=== PATIENT | male | born 1965 | race Caucasian/White ===

== ENCOUNTER 2016-08-18 08:45 | Day surgery (SDC) | payer BC ==
[2016-08-17 09:45] VITALS: BMI 24.1
[~2016-08-18 08:45] MED LIST: LACTATED RINGERS 1,000 ML IV SCH
[2016-08-18] MEDS ORDERED: LACTATED RINGERS 1,000 ML IV ONE (09:15)
[2016-08-18 09:16] VITALS: RESP 18; TEMP 97.7
[2016-08-18] MEDS ORDERED: LIDOCAINE 1% 20 ML VIAL (10MG/ML) FOR IV START INTRADERMA ONE (09:16)
[2016-08-18] MEDS ORDERED: BUPIVACAINE (PF) 0.5% 30 ML VIAL ONE (10:34)
[2016-08-18] MEDS ORDERED: TRIAMCINOLONE ACETONIDE 40 MG/ML 1 ML VIAL ONE (10:34)
[2016-08-18] MEDS ORDERED: MIDAZOLAM 2 MG/2 ML VIAL ONE (10:34)
[2016-08-18] MEDS ORDERED: fentaNYL (PF) 50 MCG/ML 2 ML AMP ONE (10:34)
--- NOTE | 2016-08-18 11:11 | P.PCN ---
Date of Procedure: 08/18/16 Procedure(s) Performed: PREOPERATIVE DIAGNOSIS: 1-Lumbar Spondylosis with Facet Arthropathy without myelopathy. POSTOPERATIVE DIAGNOSIS: 1- Lumbar Spondylosis with Facet Arthropathy without myelopathy. PROCEDURES : Left Radiofrequency thermocoagulation, L3-L4, L4-L5, and L5-S1 medial branch, with fluoroscopic guidance ANESTHESIA: IV sedation with versed 2 mg and fentaneyl 100 mcg and local infiltration with lidocaine 1% 6 ml EBL: Minimal PROCEDURE INDICATION: The patient with low back pain secondary to lumbar facet arthropathy who had more than 50% relief of her pain with previous diagnostic lumbar medial branch block with bupivacaine. we have done the radiofrequency ablation of the medial branch 6 months ago , the patient had good pain relief for 6 months, and he is here today to have a repeat radiofrequency of the medial branch lumbar area . PROCEDURE DESCRIPTION / TECHNIQUE: The patient was seen and identified in the preoperative area. Risks, benefits, complications, including but not limited to risk of infection ,bleeding , allergic reactions to the medications and no complete pain releife , and alternatives were discussed with the patient, the patient agreed to proceed with the procedure and signed the consent. IV was started. Vital signs remained stable throughout the procedure. Patient was taken to the OR and time out was completed. The patient was placed in the prone position on the procedure table. The lumber area was prepped and draped in the usual sterile fashion. . Vital signs were closely monitored during the procedure .IV sedation was used during the procedure to decrease patients anxiety. Using AP and then oblique fluoroscopy, the eye of the Otilio dog corresponding to the connection between the superior and transverse articular processes of left L3, L4, and L5 were identified, marked, and localized with 1 % lidocaine. Subsequently, a 18 [id number] radiofrequency cannula with a 10- mm active tip was advanced guided by fluoroscopy to each of the eyes of the Otilio dog at left L3, L4, and L5. Each site then underwent sensory testing at 50 Hz and 0 to 1 volt and motor testing at 2.5 Hz and 0 to 3 volt with local stimulation, but no radicular symptoms down the legs. Thereafter the left L3-4, L4-5, and L5-S1 sites underwent radiofrequency thermocoagulation at 80 degrees celsius for 90 seconds after injecting 0.5 ml of PF lidocaine 1%. then After the thermocoagulation done , 1 ml of the block solution containing Kenalog 40 mg and 3 ml of marain 0.5% was injected at the left L3-4 , L4-5 , and L5-S1, levels after negative aspiration of CSF and blood and with no paresthesias. Cannulas were retracted while injecting lidocaine 1% until the needle is out. At the end of the procedure, the skin was cleansed and bandages were applied. COMPLICATIONS: No acute complications. DISPOSITION / PLANS: The patient was placed in a supine position and transferred to the recovery area in a stable condition for observation and was discharged from the recovery room after meeting discharge criteria. Home discharge instructions given to the patient by the staff. The patient was reexamined prior to discharge. The patient will schedule a follow up in the clinic in 2-4 weeks.
[2016-08-18] MEDS ORDERED: IV FLUID CONTINUATION 1,000 ML IV ONE (11:16)
[2016-08-18 11:34] VITALS: BP 142/86; PULSE 59
--- NOTE | 2016-08-18 13:07 | FL ---
EXAMINATION TYPE: FL guided pain mgmt statistic DATE OF EXAM: 08/18/2016 11:08 AM FLUOROSCOPY Fluoroscopy time of 28 seconds was used during left radiofrequency ablation in the lumbar spine. 3 i mage/s document/s the procedure.
--- NOTE | 2016-09-23 15:10 | P.PN ---
Progress Note - Text This is an addendum to the note dictated earlier, patient was scheduled to have radiofrequency ablation of the medial branch lumbar area on right side, but when he came in for the procedure, he was complaining of more pain on the left side for this reason we chose to do the left side radiofrequency ablation of the medial branch, the patient will have the radiofrequency of the medial branch on the right side in the near future
== END 2016-08-18 11:46 | disposition home or self-care (01) ==
LOC: ORPAIN 08:45
PROVIDERS: ATTEND Specialist
DX: M47.816 Spondylosis without myelopathy or radiculopathy, lumbar region (principal); M46.96 Unspecified inflammatory spondylopathy, lumbar region; M51.36 Other intervertebral disc degeneration, lumbar region; Z88.0 Allergy status to penicillin
CPT/HCPCS: 64635; 64636; J2250; J3301; J3010

== ENCOUNTER 2016-10-05 08:28 | Day surgery (SDC) | payer BC ==
[2016-10-05 09:38] VITALS: TEMP 98.4
[2016-10-05] MEDS ORDERED: LIDOCAINE 1% 20 ML VIAL (10MG/ML) FOR IV START INTRADERMA ONE (09:42)
[2016-10-05] MEDS ORDERED: fentaNYL (PF) 50 MCG/ML 2 ML AMP ONE (10:27)
[2016-10-05] MEDS ORDERED: TRIAMCINOLONE ACETONIDE 40 MG/ML 1 ML VIAL ONE (10:27)
[2016-10-05] MEDS ORDERED: MIDAZOLAM 2 MG/2 ML VIAL ONE (10:27)
[2016-10-05] MEDS ORDERED: BUPIVACAINE (PF) 0.5% 30 ML VIAL ONE (10:27)
--- NOTE | 2016-10-05 11:04 | P.PCN ---
Date of Procedure: 10/05/16 Procedure(s) Performed: PREOPERATIVE DIAGNOSIS: 1-Lumbar Spondylosis with Facet Arthropathy without myelopathy. POSTOPERATIVE DIAGNOSIS: 1- Lumbar Spondylosis with Facet Arthropathy without myelopathy. PROCEDURES : Right Radiofrequency thermocoagulation, L3-L4, L4-L5, and L5-S1 medial branch, with fluoroscopic guidance ANESTHESIA: IV sedation with versed 2 mg and fentaneyl 100 mcg and local infiltration with lidocaine 1% 6 ml EBL: Minimal PROCEDURE INDICATION: The patient with low back pain secondary to lumbar facet arthropathy who had more than 50% relief of her pain with previous diagnostic lumbar medial branch block with bupivacaine. PROCEDURE DESCRIPTION / TECHNIQUE: The patient was seen and identified in the preoperative area. Risks, benefits, complications, including but not limited to risk of infection ,bleeding , allergic reactions to the medications and no complete pain releife , and alternatives were discussed with the patient, the patient agreed to proceed with the procedure and signed the consent. IV was started. Vital signs remained stable throughout the procedure. Patient was taken to the OR and time out was completed. The patient was placed in the prone position on the procedure table. The lumber area was prepped and draped in the usual sterile fashion. . Vital signs were closely monitored during the procedure .IV sedation was used during the procedure to decrease patients anxiety. Using AP and then oblique fluoroscopy, the ``eye of the Otilio dog corresponding to the connection between the superior and transverse articular processes of right L3, L4, and L5 were identified, marked, and localized with 1 % lidocaine. Subsequently, a 18 [id number] radiofrequency cannula with a 10- mm active tip was advanced guided by fluoroscopy to each of the ``eyes of the Otilio dog at right L3, L4, and L5. Each site then underwent sensory testing at 50 Hz and 0 to 1 volt and motor testing at 2.5 Hz and 0 to 3 volt with local stimulation, but no radicular symptoms down the legs. Thereafter the right L3-4, L4-5, and L5-S1 sites underwent radiofrequency thermocoagulation at 80 degrees celsius for 90 seconds after injecting 0.5 ml of PF lidocaine 1%. then After the thermocoagulation done , 1 ml of the block solution containing Kenalog 40 mg and 3 ml of marain 0.5% was injected at the right L3-4 , L4-5 , and L5-S1, levels after negative aspiration of CSF and blood and with no paresthesias. Cannulas were retracted while injecting lidocaine 1% until the needle is out. At the end of the procedure, the skin was cleansed and bandages were applied. COMPLICATIONS: No acute complications. DISPOSITION / PLANS: The patient was placed in a supine position and transferred to the recovery area in a stable condition for observation and was discharged from the recovery room after meeting discharge criteria. Home discharge instructions given to the patient by the staff. The patient was reexamined prior to discharge. The patient will schedule a follow up in the clinic in 2-4 week Patient given a prescription refill for Neurontin 600 mg every 6 hours dispensed 120 with one refill, Motrin 800 mg every 8 hours dispense 90 with 1 refill, and Ultram 50 mg 1 tablet by mouth every 8 hours dispense 90 with 1 refill
[2016-10-05] MEDS ORDERED: IV FLUID CONTINUATION 1,000 ML IV ONE (11:10)
[2016-10-05 11:12] VITALS: RESP 18
--- NOTE | 2016-10-05 11:16 | FL ---
EXAMINATION TYPE: FL guided pain mgmt statistic DATE OF EXAM: 10/05/2016 11:00 AM HISTORY: Pain 6 sec fluoro time. 3 images scanned. Rt. Lumbar epidural.
[2016-10-05 11:27] VITALS: BP 127/73; PULSE 58
== END 2016-10-05 12:06 | disposition home or self-care (01) ==
LOC: ORPAIN 08:28
PROVIDERS: ATTEND Specialist
DX: M47.816 Spondylosis without myelopathy or radiculopathy, lumbar region (principal); M46.96 Unspecified inflammatory spondylopathy, lumbar region; F17.200 Nicotine dependence, unspecified, uncomplicated; J44.9 Chronic obstructive pulmonary disease, unspecified; Z88.0 Allergy status to penicillin
CPT/HCPCS: 99152; 64635; 64636 ×2; J2250; J3301; J3010

== ENCOUNTER → 2016-11-30 | Outpatient (CLI) | payer BC ==
[2016-11-30 13:38] VITALS: BP 159/92; PULSE 73; RESP 16; TEMP 98.2
--- NOTE | 2016-11-30 14:32 | P.CONS ---
History of Present Illness - Reason for Consult Consult date: 11/30/16 - History of Present Illness This is a follow-up visit for this 51 years old male with a chronic history of severe low back pain patient diagnosed with lumbar spondylosis, lumbar degenerative disc disease, status post radiofrequency ablation of the medial branch lumbar area , done in September 2016, and July 2016, patient was doing fairly well until last week when he twisted his torso , and he started feeling severe low back pain with radiation to the left lower extremity associated with numbness and tingling sensation, radiated to the foot, he denies any motor or sensory deficit, no fever or night sweats and no change in the bowel movement or urination, is currently on Neurontin 600 mg every 6 hours , Ultram 50 mg every 8 hours, Motrin 800 mg every 8 hours, denies any side effect of the medication he denies any excessive drowsiness sleepiness, and he denies any suicidal ideation Past Medical History Past Medical History: Musculoskeletal Disorder Additional Past Medical History / Comment(s): LUMBAR DDD-NUMBNESS & TINGLING IN LT LEG TO FEET OCCASIONALLY- USES TENS UNIT PRN History of Any Multi-Drug Resistant Organisms: None Reported Past Surgical History: No Surgical Hx Reported Additional Past Surgical History / Comment(s): PAIN CLINIC PROCEDURES- LAST ONE 04/09/15 Past Anesthesia/Blood Transfusion Reactions: No Reported Reaction Past Psychological History: No Psychological Hx Reported Smoking Status: Current every day smoker Past Alcohol Use History: None Reported Additional Past Alcohol Use History / Comment(s): STARTED SMOKING AGE 17(1980) 1 /2 PPD Past Drug Use History: None Reported - Past Family History Mother Family Medical History: Myocardial Infarction ([place]) Additional Family Medical History / Comment(s): triple bipass Father Family Medical History: No Reported History Additional Family Medical History / Comment(s): triple bypass Medications and Allergies Home Medications Medication Instructions Recorded Confirmed Type Multivitamin [Men's Multi-Vitamin] 1 tab PO DAILY 01/08/16 11/30/16 History Allergies Allergy/AdvReac Type Severity Reaction Status Date / Time Penicillins Allergy SEIZURE Verified 11/30/16 13:23 Physical Exam Vitals: Vital Signs Temp Pulse Resp BP 11/30/16 13:25 98.2 F 73 16 159/92 Intake and Output 11/29/16 11/30/16 11/30/16 22:59 06:59 14:59 Other: Weight 86.183 kg Patient Weight 12/01/16 06:59 Weight 86.183 kg Physical Examinations : 1-Constitutiona : Cooperative , not in acute distress . 2-HEENT : nech ; supple , no Lymphadenopathy , no Thyromegaly , normal thyroid size . eyes : no ptosis , no icterus, no photophobia . ENT : normal of hearing , normal oropharynx , no Thrush . 3- Respiratory : Chest clear to auscultations Bilaterally , no wheezing , no Rhonchi . 4- Cardiovascular : regular rate and rhythem , S1 , S2 , no S3 , no S4. 5- Gastrointestinal : abdomen soft no tenderness , bowel sounds positive all four quadrents , no organomegally . 6- Genitourinary : Defferred . 7- neurologic : Cranial nerve II to XII intact , no focal neurological deffecit . 8-psychatric : alert , oriented X 3 , appropriate affect , intact judgment and insight . 9-Lymphatic : no Lymphadenopathy . 10- musculoskeltal : t . exams of the Lumber spine = normal moter stegnth lower extremities ,thigh and legs .5/5 deep tendon reflexes : normal Knee Jerk , normal ankle Jerk . positive lumber facet Loading Test strait leg raising test positive at 30 degree ,LT, negative right side , Fabere test positive LT . Negative on the right side Decreased sensation in the anterior and medial aspect of the left thigh Results Comments: MRI of the lumbar spine done at [facility] which was done in 2013= lumbar degenerative disc disease and lumbar spondylosis and left side L5-S1 paracentral disc herniation Assessment and Plan Plan: Assessment and plan = - Chronic low back pain secondary to lumbar degenerative disc disease , lumbar spondylosis with facet arthropathy without myelopathy ,L5- S1 disc herniation -Currently patient has symptoms of lumbar radiculopathy secondary to lumbar disc herniation - diagnoses, prognosis, and treatment options including but not limited to physical therapy, surgical interventions, interventional therapies and medication management including narcotics and adjuvant medication were discussed with the patient and all questions answered to the patient's satisfaction. -medication refile =1-Ultram 50 mg every 8 hours dispense 90 with 2 refill 2- Neurontin 600 mg every X hours dispense 120 with 2 refills 3-Motrin 800 mg every 8 hours dispense 90 with 2 refills -procedure= patient could be a good candidate to have lumbar epidural steroid injections left side directed at the L5-S1 levels , she continued to have severe pain after the epidural steroid injections and would consider doing medial MRI of the lumbar spine to evaluate the progression of his lumbar spine Time with Patient: Less than 30
== END | disposition home or self-care (01) ==
LOC: PNWHC3 13:13
PROVIDERS: ATTEND Specialist
DX: M51.27 Other intervertebral disc displacement, lumbosacral region (principal); M51.36 Other intervertebral disc degeneration, lumbar region; M47.816 Spondylosis without myelopathy or radiculopathy, lumbar region; M46.86 Other specified inflammatory spondylopathies, lumbar region; F17.200 Nicotine dependence, unspecified, uncomplicated; Z88.0 Allergy status to penicillin
CPT/HCPCS: 99211

== ENCOUNTER 2016-12-16 06:22 | Day surgery (SDC) | payer BC ==
[2016-12-15 09:49] VITALS: BMI 25.0
[2016-12-16 06:52] VITALS: RESP 18; TEMP 96.6
[2016-12-16] MEDS ORDERED: DEXAMETHASONE SOD PHOS (MDV) 100 MG/10 ML VIAL ONE ×2 (07:05)
[2016-12-16] MEDS ORDERED: IOHEXOL 180 MG/ML 1 ML ML ONE (07:05)
--- NOTE | 2016-12-16 07:18 | P.PCN ---
Date of Procedure: 12/16/16 Preoperative Diagnosis: Postoperative Diagnosis: Procedure(s) Performed: PREOPERATIVE DIAGNOSIS: 1- Lumbar Degenerative Disc Diseases 2-Lumbar spondylosis with Facet arthropathy without myelopathy. 3-lumbar radiculopathy. POSTOPERATIVE DIAGNOSIS: 1-Lumber Degenerative Disc Diseases 2-Lumbar spondylosis with Facet arthropathy without myelopathy. 3-lumbar radiculopathy. PROCEDURE 1. Lumbar epidural steroid injection under fluoroscopic guidance at the L5-S1 level. 2. Lumbar epidurogram. ANESTHESIA: Local with 1% lidocaine 3 ml EBL: Minimal PROCEDURE INDICATION: The patient with low back pain and radiculitis symptoms unresponsive to conservative treatment. Fluoroscopy was used to optimize visualization of the needle placement and to maximize safety. PROCEDURE DESCRIPTION / TECHNIQUE: The patient was seen and identified in the preoperative area. Risks, benefits , complications including but not limited to infections ,bleeding ,allergic reaction to the medications ,nerve damage and not complete pain releife , and alternatives were discussed with the patient. The patient agreed to proceed with the procedure and signed the consent, and vital signs were stable. Patient was taken to the OR and time out was completed. The patient was placed in the prone position on procedure table and a pillow was placed under the abdomen to reduce lumbar lordosis. The lumbosacral area was prepped and draped in the usual sterile fashion.ere closely monitored during the procedure.. Vital signs was monitered during the entire procedure. Using anterior-posterior fluoroscopy, the L5-S1 interlaminar space was identified and the skin over this site was marked and then infiltrated with 1% lidocaine subcutaneously. Subsequently, a 20-gauge Tuohy epidural needle was inserted and advanced toward the epidural space using the ``Loss of resistance technique and guided by AP and lateral fluoroscopy. The correct needle position in the epidural space was verified with the injection of 2 mL of the water soluble contrast dye Omnipaque 180 contrast and observing an excellent epidurogram with the epidural spread of the dye, after negative aspiration for blood and CSF and in the absence of paresthesias. Again after negative aspiration, a 6 ml mixture containing 20 mg of Dexamethasone and 2 ml of preservative free Normal Saline, and 2 ml of preservative free lidocaine 1% solution was injected and a washout of epidurogram was seen. Needle was withdrawn intact, skin was cleansed, and bandages were applied. COMPLICATIONS: None DISPOSITION / PLANS: The patient was placed in a supine position and transferred to the recovery area in a stable condition for observation. There was no evidence of lower extremity motor or sensory deficit after the procedure. Patient was discharged from the recovery room after meeting discharge criteria. Home discharge instructions were given to the patient by the staff. The patient was reexamined prior to discharge. The patient will schedule a follow up in the clinic in 2-4 weeks. Implants: Indications for Procedure: Operative Findings: Description of Procedure:
--- NOTE | 2016-12-16 07:30 | FL ---
FLUOROSCOPY 1 second of fluoroscopy time were utilized during lumbar epidural steroid injection. 1 images documen t the procedure.
[2016-12-16 08:42] VITALS: BP 151/95; PULSE 80
== END 2016-12-16 07:32 | disposition home or self-care (01) ==
LOC: ORPAIN 06:22
PROVIDERS: ATTEND Specialist
DX: M51.16 Intervertebral disc disorders with radiculopathy, lumbar region (principal); M47.26 Other spondylosis with radiculopathy, lumbar region; M46.96 Unspecified inflammatory spondylopathy, lumbar region; F17.200 Nicotine dependence, unspecified, uncomplicated; Z79.1 Long term (current) use of non-steroidal anti-inflammatories (NSAID); Z79.891 Long term (current) use of opiate analgesic; Z79.899 Other long term (current) drug therapy; Z88.0 Allergy status to penicillin
CPT/HCPCS: 62323; Q9965; J1100

== ENCOUNTER → 2017-01-19 | Day surgery (SDC) | payer BC ==
--- NOTE | 2017-01-19 10:29 | P.PN ---
Progress Note - Text Patient presented today for lumbar epidural steroid injection, but did not have a cart driver present to take him home. I was informed by nursing staff that the policy of the hospital is that we cannot do procedures for patients who do not have transportation to get home (if the patient developed a numb or weak leg after, for instance), and thus the procedure was canceled.
== END ==
LOC: ORPAIN 09:35
PROVIDERS: ATTEND Anesthesiology
DX: Z53.9 Procedure and treatment not carried out, unspecified reason (principal)

== ENCOUNTER → 2017-02-22 | Outpatient (CLI) | payer BC ==
[2017-02-22 13:52] VITALS: BP 139/89; PULSE 73; RESP 16; TEMP 98.4
--- NOTE | 2017-02-22 14:18 | P.PN ---
Progress Note - Text Patient returns for followup for chronic back pain with radiation to hips and buttocks bilaterally. Patient could not undergo LESI #3 at last visit because he didn't have a driver lifter of sanitation truck. Patient continues on tramadol, ibuprofen, and gabapentin medications for pain with relief, VAS score 5/10 today. Patient denies adverse drug effects from medications. Today, pt denies new-onset weakness, bowel/bladder incontinence, or any other signs or symptoms of cauda equina syndrome. There are no signs of acute intoxication, and no indications of medication diversion or overuse. In addition to above, 13-point review of systems is also negative for chest pain , shortness of breath, changes in vision, changes in hearing, new onset weakness , abdominal pain, diarrhea, extreme fatigue, malaise, fever, skin changes, homicidal or suicidal ideation, or bowel or bladder incontinence. Vital Signs: Reviewed in EMR Gen: WDWN, AAOx3, NAD HEENT: NCAT, EOMI, hearing grossly normal Pulm: resp unlabored Abd: soft, NT, ND Neck: supple, trachea midline ROM in flexion lumbar spine: reduced ROM in extension lumbar spine: reduced Facet loading: + bilateral SI joint tenderness: + bilateral, L > R Yosvany's test: ++ bilateral, L > R SLR negative Neuro: CN II-XII grossly intact, muscle strength lower extremities PRESERVED Imaging: Reviewed in EMR Assessment: 1. lumbar spondylosis without myelopathy 2. sacroiliitis 3. chronic pain syndrome Plan: 1. Explanation: Opioid and psychological risk scores were reviewed. Diagnoses , prognoses, and multiple treatment options including but not limited to physical therapy, interventional therapies, adjuvant medical therapies, narcotic medication therapies, and surgery were discussed with the patient and all questions were answered to the patient's satisfaction. 2. Opioid agreement: Patient had previously signed narcotic agreement, and was orally counseled to not overuse, abuse, divert, or cell medications, and to take them as prescribed by only 1 healthcare provider. The patient was also counseled to take medications as prescribed by only 1 healthcare provider and to store opioid medications in the safe and preferably locked location. Patient was also counseled against driving while using narcotic medications and also to not use alcohol or any illicit or recreational drugs. The patient verbalized understanding that lack of compliance with any of the above and likely result in failure to renew narcotic prescriptions, possible discharge from the clinic, and possible legal ramifications thereafter if indicated. 3. Counseling: The patient was counseled extensively on SMOKING CESSATION, BODY MASS INDEX, EXERCISE. Specifically, the patient was instructed regarding the importance of smoking cessation, obesity, and exercise in the context of both chronic pain and overall health. 4. Procedures: LESI #3 4-6 weeks 5. Consultations: None 6. Investigations: MRI lumbar spine to eval benefit vs. risk for surgery 7. Medications: tramadol 50 TID, gabapentin 600 TID, and ibuprofen 800 TID all refilled x 3 months 8. Disposition: f/u for LESI in one month, f/u for re-eval in 2 months with MRI result PQRS measures: 1-Patient's medications are documented in the chart. 2-Tobacco use is positive, counseling given 3-Patient has not had a pneumococcal vaccine. 4-Advanced care planning discussed, patient unable to give 5-Opioid contract signed with the patient. 6-Pain positive, follow-up visit or procedure scheduled 7-Patient's blood pressure measured and documented, and just above normal limits. 8-Patient's weight was measured, and body mass index within the normal limits 9-Patient WAS NOT identified as an unhealthy alcohol user.
== END ==
LOC: PNWHC3 13:33
PROVIDERS: ATTEND Anesthesiology
DX: M47.816 Spondylosis without myelopathy or radiculopathy, lumbar region (principal); M46.1 Sacroiliitis, not elsewhere classified; Z79.899 Other long term (current) drug therapy; Z79.891 Long term (current) use of opiate analgesic
CPT/HCPCS: 99211

== ENCOUNTER → 2017-03-03 | Outpatient (CLI) | payer BC ==
--- NOTE | 2017-03-03 08:47 | MR ---
EXAMINATION TYPE: MR lumbar spine wo con DATE OF EXAM: 03/03/2017 COMPARISON: NONE HISTORY: lumbar spondylosis TECHNIQUE: T1 and T2 axial and sagittal images of the lumbar spine are submitted. FINDINGS: There is no abnormal signal seen within the visualized spinal cord or paraspinal soft tissu es. At L1-2 there is no disc herniation or canal stenosis. Mild hypertrophy of the facet joints. No degen erative disc disease or foraminal encroachment. At L2-3 there is mild disc desiccation and loss of disc space. Mild hypertrophic change of the facets with no canal stenosis or foraminal encroachment. No disc herniation. At L3-4 there is no degenerative disc disease, disc herniation, or canal stenosis. Mild hypertrophic change of the facets with no foraminal encroachment. At L4-5 there is disc desiccation with mild circumferential disc bulging. Bulging greater laterally t o the right with mild right-sided foraminal encroachment. Borderline canal stenosis. At L5-S1 there is severe degenerative disc disease with discogenic marrow changes. There is central d isc bulging with bilateral foraminal encroachment greater on the right. No Canal stenosis. IMPRESSION: 1. At L5-S1 there is severe degenerative disc disease with discogenic marrow changes. There is centra l disc bulging with bilateral foraminal encroachment greater on the right. No Canal stenosis. 2. At L4-5 there is disc desiccation with mild circumferential disc bulging. Bulging greater laterall y to the right with mild right-sided foraminal encroachment. Borderline canal stenosis.
== END | disposition home or self-care (01) ==
LOC: RADMRIMAIN 07:58
PROVIDERS: ATTEND Anesthesiology
DX: M48.06 Spinal stenosis, lumbar region (principal); M51.27 Other intervertebral disc displacement, lumbosacral region; M51.37 Other intervertebral disc degeneration, lumbosacral region
CPT/HCPCS: 72148

== ENCOUNTER 2017-03-18 08:18 | Day surgery (SDC) | payer BC ==
[2017-03-18 08:54] VITALS: RESP 16; TEMP 97.9
[2017-03-18] MEDS ORDERED: LIDOCAINE 1% 20 ML VIAL (10MG/ML) FOR IV START INTRADERMA ONE (08:54)
--- NOTE | 2017-03-18 09:22 | P.PCN ---
Date of Procedure: 03/18/17 Preoperative Diagnosis: Lumbar degenerative disc disease Postoperative Diagnosis: Same as above Procedure(s) Performed: Bilateral epidural steroid injection under fluoroscopic guidance Implants: Anesthesia: other (Conscious sedation with IV Versed and fentanyl) Surgeon: Alvina Whalen Pathology: none sent Condition: stable Disposition: PACU Indications for Procedure: Operative Findings: Description of Procedure: The patient was seen in preoperative holding area consent was obtained then he was brought into the procedure room and placed in prone position. Skin was prepped with Betadine 3 and draped in a sterile manner. Lidocaine 1% was used to numb the skin up at the target point that was at the L5-S1 level in the left paramedian approach. I used 20-gauge 3-1/2 inch Touhy epidural needle with loss -of-resistance to air to identify the epidural space. There was positive loss- of-resistance to air at about 5 cm from skin negative aspiration for any CSF or blood negative paresthesia. after that I injected 1 mL of Omnipaque which showed typical epidurogram on the AP view of fluoroscopy then I injected 40 mg of Kenalog +2 MLS of Marcaine 0.25% +4 MLS of preservative free normal saline to a total volume of 7 MLS in epidural space. Patient tolerated procedure well.
[2017-03-18] MEDS ORDERED: IV FLUID CONTINUATION 1,000 ML IV ONE (09:32)
--- NOTE | 2017-03-18 09:36 | FL ---
EXAMINATION TYPE: FL guided pain mgmt statistic DATE OF EXAM: 03/18/2017 COMPARISON: NONE HISTORY: Back pain TECHNIQUE: Fluoroscopy. FINDINGS/IMPRESSION: Fluoroscopic guidance was provided during procedure performed by anesthesia ser vices. A total of 2 seconds of fluoroscopic time was utilized during the procedure and 1 spot images was acquired.
[2017-03-18 09:44] VITALS: BP 145/81; PULSE 67
== END 2017-03-18 09:58 | disposition home or self-care (01) ==
LOC: ORPAIN 08:18
DX: M51.36 Other intervertebral disc degeneration, lumbar region (principal); Z88.0 Allergy status to penicillin
CPT/HCPCS: 62323; J2250; J3301; Q9965; J3010; 99152

== ENCOUNTER → 2017-03-31 | Outpatient (CLI) | payer BC ==
--- NOTE | 2017-03-31 10:49 | XR ---
EXAMINATION TYPE: XR chest 2V DATE OF EXAM: 03/31/2017 COMPARISON: Prior chest x-ray 03/18/2016 HISTORY: Pneumonia TECHNIQUE: Frontal and lateral views of the chest are obtained. FINDINGS: There is no focal air space opacity, pleural effusion, or pneumothorax seen. The cardiac silhouette size is within normal limits. The osseous structures are intact. IMPRESSION: No acute cardiopulmonary process.
== END | disposition home or self-care (01) ==
LOC: RADXRMAIN 08:42
PROVIDERS: ATTEND Family Medicine
DX: J18.9 Pneumonia, unspecified organism (principal)
CPT/HCPCS: 71020

== ENCOUNTER → 2017-07-12 | Outpatient (CLI) | payer BC ==
[2017-07-12 12:34] VITALS: BP 140/90; PULSE 65; RESP 16; TEMP 98
--- NOTE | 2017-07-12 12:45 | P.PN ---
Progress Note - Text Progress Note Date: 07/12/17 52-year-old male with history of chronic lower back pain due to lumbar degenerative disc disease and lumbar spondylosis without myelopathy. The patient gets good relief of pain after injection in his back and the last one was an epidural steroid injection that lasted for more than 4 months. He takes tramadol and Motrin and Neurontin to help control his pain. He denies any side effects to these medications and he does not show any drug-seeking behavior. The patient has a full-time job. Today I will do a urine drug screen on the patient, give him prescription for 3 months of the above-mentioned medications. As he got very good relief of his pain after the last epidural steroid injection I will schedule him for another one to be done in early July/2017.
== END | disposition home or self-care (01) ==
LOC: PNWHC3 11:54
PROVIDERS: ATTEND Anesthesiology
DX: M51.36 Other intervertebral disc degeneration, lumbar region (principal); M47.816 Spondylosis without myelopathy or radiculopathy, lumbar region; Z79.52 Long term (current) use of systemic steroids; Z79.891 Long term (current) use of opiate analgesic; Z79.1 Long term (current) use of non-steroidal anti-inflammatories (NSAID); Z79.899 Other long term (current) drug therapy
CPT/HCPCS: 80307; 80356; 80373; 99211

== ENCOUNTER 2017-08-19 07:18 | Day surgery (SDC) | payer BC ==
[2017-08-19 07:36] VITALS: RESP 16; TEMP 97.4
[2017-08-19] MEDS ORDERED: LACTATED RINGERS 1,000 ML IV SCH (07:45)
[2017-08-19] MEDS ORDERED: LIDOCAINE 1% 20 ML VIAL (10MG/ML) FOR IV START INTRADERMA ONE (07:47)
[2017-08-19] MEDS ORDERED: methylPREDNISolone ACETATE 40 MG/ML 1 ML VIAL ONE (09:01)
--- NOTE | 2017-08-19 09:07 | P.PCN ---
Date of Procedure: 08/19/17 Surgeon: Chirag Schrader Pathology: none sent Condition: stable Disposition: PACU Description of Procedure: PREOPERATIVE DIAGNOSIS: 1-Lumbar radiculitis. POSTOPERATIVE DIAGNOSIS: 1-Lumbar radiculitis. PROCEDURE 1. Lumbar epidural steroid injection under fluoroscopic guidance at the L5-S1 level. 2. Lumbar epidurogram. ANESTHESIA: Local with 1% lidocaine; IV sedation with Versed/fentanyl. EBL: Minimal PROCEDURE INDICATION: The patient with low back pain and radiculitis symptoms unresponsive to conservative treatment. Fluoroscopy was used to optimize visualization of the needle placement and to maximize safety. No use of blood thinners. PROCEDURE DESCRIPTION / TECHNIQUE: The patient was seen and identified in the preoperative area. Risks, benefits, complications, and alternatives were discussed with the patient, including but not limited to bleeding, infection, nerve damage, allergic reactions to medications, and incomplete pain relief. The patient agreed to proceed with the procedure and signed the consent after all questions were answered. IV was started, and vital signs were stable. Patient was taken to the OR and time out was completed to confirm patient position, procedure, laterality of pain, and allergies. The patient was placed in the prone position on procedure table and a pillow was placed under the abdomen to reduce lumbar lordosis. The lumbosacral area was prepped and draped in the usual sterile fashion. Critical pause was taken. Vital signs were closely monitored during the procedure. Conscious sedation was used during the procedure to decrease patients anxiety. Using anterior-posterior fluoroscopy, the L5-S1 interlaminar space was identified and the skin over this site was marked and then infiltrated with 1% lidocaine subcutaneously. Subsequently, a 20-gauge 3.5-inch Tuohy epidural needle was inserted and advanced toward the epidural space using the Loss of resistance technique and guided by AP and lateral fluoroscopy. The correct needle position in the epidural space was verified with the injection of 2 mL of the water soluble contrast dye Omnipaque 300 contrast and observing an excellent epidurogram with the epidural spread of the dye, after negative aspiration for blood and CSF and in the absence of paresthesias. Again after negative aspiration, a 7 ml mixture containing 80 mg of Depo Medrol and 3 ml of preservative free Normal Saline, and 2 ml of preservative free lidocaine 1% solution was injected and a washout of epidurogram was seen. Needle was withdrawn intact, skin was cleansed, and bandages were applied. COMPLICATIONS: None COMMENTS: DISPOSITION / PLANS: The patient was placed in a supine position and transferred to the recovery area in a stable condition for observation. There was no evidence of lower extremity motor or sensory deficit after the procedure. Patient was discharged from the recovery room after meeting discharge criteria. Home discharge instructions were given to the patient by the staff. The patient was reexamined prior to discharge and there were no issues. The patient will schedule a follow up in the clinic in 2-4 weeks.
[2017-08-19 09:36] VITALS: BP 136/86; PULSE 63
--- NOTE | 2017-08-19 10:16 | FL ---
EXAMINATION TYPE: FL guided pain mgmt statistic DATE OF EXAM: 08/19/2017 HISTORY: Pain 7sec fluoro time,3 images scanned
== END 2017-08-19 09:46 | disposition home or self-care (01) ==
LOC: ORPAIN 07:18
PROVIDERS: ATTEND Anesthesiology
DX: G89.29 Other chronic pain (principal); M54.16 Radiculopathy, lumbar region; Z88.0 Allergy status to penicillin
CPT/HCPCS: 62323; J2250; J1030; Q9965; J3010

== ENCOUNTER → 2017-10-04 | Outpatient (CLI) | payer BC ==
[2017-10-04 12:40] VITALS: BP 149/84; PULSE 65; RESP 18
--- NOTE | 2017-10-04 13:02 | P.PN ---
Progress Note - Text Progress Note Date: 10/04/17 This is a 52-year-old male with history of severe lumbar disc disease especially at L5-S1 level with lumbar spondylosis without myelopathy. The patient's pain has been well-controlled with a combination of interventional pain procedures and oral medications including tramadol Neurontin and ibuprofen. He is scheduled to have an epidural steroid injection a few days from now. Patient denies any side effects of the medication, denies excessive drowsiness or sleepiness, denies suicidal ideation, Physical Examinations : 1-Constitutiona : Cooperative , not in acute distress . 2-HEENT : nech ; supple , no Lymphadenopathy , no Thyromegaly , normal thyroid size . eyes : no ptosis , no icterus, no photophobia . ENT : normal of hearing , normal oropharynx , no Thrush . 3- Respiratory : Chest clear to auscultations Bilaterally , no wheezing , no Rhonchi . 4- Cardiovascular : regular rate and rhythem , S1 , S2 , no S3 , no S4. 5- Gastrointestinal : abdomen soft no tenderness , bowel sounds positive all four quadrents , no organomegally . 6- Genitourinary : Defferred . 7- neurologic : Cranial nerve II to XII intact , no focal neurological deffecit . 8-psychatric : alert , oriented X 3 , appropriate affect , intact judgment and insight . 9-Lymphatic : no Lymphadenopathy . 10- musculoskeltal : exams of the cervical spine = motor strength normal bilateral upper extremities f exams of the Lumber spine = motor strength lower extremities ,thigh and legs .5/5 d Assessment and plan = - Chronic low back pain secondary to lumbar degenerative disc disease , lumbar spondylosis with facet arthropathy without myelopathy , . The patient was counseled about risk of opioid use, psychological risk associated with opioids and was orally counseled to not overuse , abuse , divert ,or sell dictations to take medications as prescribed only , and to restore medication in safe location , and patient counseled against driving while using narcotic medications, and also not to use alcohol or any illicit recreational drugs the patient's verbalized understanding that the lack of compliance will result in failure to renew narcotic prescription and possible discharge from the clinic The patient was encouraged to quit smoking - diagnoses, prognosis, and treatment options including but not limited to physical therapy, surgical interventions, interventional therapies and medication management including narcotics and adjuvant medication were discussed with the patient and all questions answered to the patient's satisfaction. -medication refile =1- tramadol 50 mg 3 times a day with a total of 90 pills for the month with 1 refill 2-Neurontin 3-ibuprofen -procedure= lumbar epidural steroid injection We will do urine drug screen on the patient today.
== END | disposition home or self-care (01) ==
LOC: PNWHC3 11:46
PROVIDERS: ATTEND Anesthesiology
DX: G89.29 Other chronic pain (principal); M51.36 Other intervertebral disc degeneration, lumbar region; M47.816 Spondylosis without myelopathy or radiculopathy, lumbar region; M46.96 Unspecified inflammatory spondylopathy, lumbar region; Z79.891 Long term (current) use of opiate analgesic; Z79.899 Other long term (current) drug therapy; Z79.1 Long term (current) use of non-steroidal anti-inflammatories (NSAID)
CPT/HCPCS: 99211

== ENCOUNTER 2017-10-11 06:40 | Day surgery (SDC) | payer BC ==
[2017-10-11 07:45] VITALS: RESP 16; TEMP 97.9
[2017-10-11] MEDS: LACTATED RINGERS 1,000 ML IV SCH ×2 (07:55→08:23)
[2017-10-11] MEDS ORDERED: LIDOCAINE 1% 20 ML VIAL (10MG/ML) FOR IV START INTRADERMA ONE (07:55)
--- NOTE | 2017-10-11 08:40 | P.PCN ---
Date of Procedure: 10/11/17 Procedure(s) Performed: PREOPERATIVE DIAGNOSIS: 1- Lumbar Degenerative Disc Diseases 2-Lumbar spondylosis with Facet arthropathy without myelopathy POSTOPERATIVE DIAGNOSIS: 1-Lumber Degenerative Disc Diseases 2-Lumbar spondylosis with Facet arthropathy without myelopathy PROCEDURE 1. Lumbar epidural steroid injection under fluoroscopic guidance at the L4-5 level. 2. Lumbar epidurogram. ANESTHESIA: Local with 1% lidocaine 3 ml and , moderate sedation with intravenous Versed 2 mg ,and fentanyle 100 Mcg EBL: Minimal PROCEDURE INDICATION: The patient with low back pain and radiculitis symptoms unresponsive to conservative treatment. Fluoroscopy was used to optimize visualization of the needle placement and to maximize safety. PROCEDURE DESCRIPTION / TECHNIQUE: The patient was seen and identified in the preoperative area. Risks, benefits , complications including but not limited to infections ,bleeding ,allergic reaction to the medications ,nerve damage and not complete pain releife , and alternatives were discussed with the patient. The patient agreed to proceed with the procedure and signed the consent. IV was started, and vital signs were stable. Patient was taken to the OR and time out was completed. The patient was placed in the prone position on procedure table and a pillow was placed under the abdomen to reduce lumbar lordosis. The lumbosacral area was prepped and draped in the usual sterile fashion.ere closely monitored during the procedure. Conscious sedation was used during the procedure to decrease patients anxiety. Vital signs was monitered during the entire procedure. Using anterior-posterior fluoroscopy, the L4-5 interlaminar space was identified and the skin over this site was marked and then infiltrated with 1% lidocaine subcutaneously. Subsequently, a 20-gauge Tuohy epidural needle was inserted and advanced toward the epidural space using the ``Loss of resistance technique and guided by AP and lateral fluoroscopy. The correct needle position in the epidural space was verified with the injection of 2 mL of the water soluble contrast dye Omnipaque 180 contrast and observing an excellent epidurogram with the epidural spread of the dye, after negative aspiration for blood and CSF and in the absence of paresthesias. Again after negative aspiration, a 6 ml mixture containing 20 mg of Dexamethasone and 2 ml of preservative free Normal Saline, and 2 ml of preservative free lidocaine 1% solution was injected and a washout of epidurogram was seen. Needle was withdrawn intact, skin was cleansed, and bandages were applied. COMPLICATIONS: None DISPOSITION / PLANS: The patient was placed in a supine position and transferred to the recovery area in a stable condition for observation. There was no evidence of lower extremity motor or sensory deficit after the procedure. Patient was discharged from the recovery room after meeting discharge criteria. Home discharge instructions were given to the patient by the staff. The patient was reexamined prior to discharge. The patient will schedule a follow up in the clinic in 2-4 weeks.
[2017-10-11] MEDS ORDERED: IV FLUID CONTINUATION 1,000 ML IV ONE (08:49)
[2017-10-11 08:59] VITALS: PULSE 65
[2017-10-11 09:08] VITALS: BP 153/90
--- NOTE | 2017-10-11 10:05 | FL ---
Fluoroscopy HISTORY: Pain 2 seconds fluoroscopy time supplied to the referring clinician. 1 intraoperative C-arm images docume nt the procedure. See dictated report from anesthesia.
== END 2017-10-11 09:16 | disposition home or self-care (01) ==
LOC: ORPAIN 06:40
PROVIDERS: ATTEND Specialist
DX: M47.26 Other spondylosis with radiculopathy, lumbar region (principal); M51.16 Intervertebral disc disorders with radiculopathy, lumbar region; Z88.0 Allergy status to penicillin
CPT/HCPCS: 62323; J2250; J3301; Q9965; J3010

== ENCOUNTER 2017-11-10 07:21 | Day surgery (SDC) | payer BC ==
[2017-11-10 07:37] VITALS: TEMP 97.6
[2017-11-10] MEDS ORDERED: LACTATED RINGERS 1,000 ML IV ONE (07:41)
[2017-11-10] MEDS ORDERED: LACTATED RINGERS 1,000 ML IV SCH (08:30)
--- NOTE | 2017-11-10 08:31 | P.PCN ---
Date of Procedure: 11/10/17 Surgeon: Chirag Schrader Pathology: none sent Condition: stable Disposition: PACU Description of Procedure: PREOPERATIVE DIAGNOSIS: 1-Lumbar radiculitis. POSTOPERATIVE DIAGNOSIS: 1-Lumbar radiculitis. PROCEDURE 1. Lumbar epidural steroid injection under fluoroscopic guidance at the L4-L5 level. 2. Lumbar epidurogram. ANESTHESIA: Local with 1% lidocaine; IV sedation with Versed/fentanyl. EBL: Minimal PROCEDURE INDICATION: The patient with low back pain and radiculitis symptoms unresponsive to conservative treatment, good relief from LESIs in the past. Fluoroscopy was used to optimize visualization of the needle placement and to maximize safety. No use of blood thinners. PROCEDURE DESCRIPTION / TECHNIQUE: The patient was seen and identified in the preoperative area. Risks, benefits, complications, and alternatives were discussed with the patient, including but not limited to bleeding, infection, nerve damage, allergic reactions to medications, and incomplete pain relief. The patient agreed to proceed with the procedure and signed the consent after all questions were answered. IV was started, and vital signs were stable. Patient was taken to the OR and time out was completed to confirm patient position, procedure, laterality of pain, and allergies. The patient was placed in the prone position on procedure table and a pillow was placed under the abdomen to reduce lumbar lordosis. The lumbosacral area was prepped and draped in the usual sterile fashion. Critical pause was taken. Vital signs were closely monitored during the procedure. Conscious sedation was used during the procedure to decrease patients anxiety. Using anterior-posterior fluoroscopy, the L4-L5 interlaminar space was identified and the skin over this site was marked and then infiltrated with 1% lidocaine subcutaneously. Subsequently, a 20-gauge 3.5-inch Tuohy epidural needle was inserted and advanced toward the epidural space using the Loss of resistance technique and guided by AP and lateral fluoroscopy. The correct needle position in the epidural space was verified with the injection of 2 mL of the water soluble contrast dye Isovue 200 contrast and observing an excellent epidurogram with the epidural spread of the dye, after negative aspiration for blood and CSF and in the absence of paresthesias. Again after negative aspiration, a 8 ml mixture containing 40 mg of Depo Medrol and 3 ml of preservative free Normal Saline, and 2 ml of preservative free lidocaine 1% solution was injected and a washout of epidurogram was seen. Needle was withdrawn intact, skin was cleansed, and bandages were applied. COMPLICATIONS: None COMMENTS: DISPOSITION / PLANS: The patient was placed in a supine position and transferred to the recovery area in a stable condition for observation. There was no evidence of lower extremity motor or sensory deficit after the procedure. Patient was discharged from the recovery room after meeting discharge criteria. Home discharge instructions were given to the patient by the staff. The patient was reexamined prior to discharge and there were no issues. The patient will schedule a follow up in the clinic in 2-4 weeks.
[2017-11-10] MEDS ORDERED: IV FLUID CONTINUATION 1,000 ML IV ONE ×2 (08:37)
--- NOTE | 2017-11-10 08:41 | FL ---
EXAMINATION TYPE: FL guided pain mgmt statistic DATE OF EXAM: 11/10/2017 FLUOROSCOPY Fluoroscopy time of 4 seconds was used during lumbar epidural steroid injection. 2 image/s document/ s the procedure.
[2017-11-10 08:51] VITALS: BP 146/88; PULSE 70; RESP 18
== END 2017-11-10 09:08 | disposition home or self-care (01) ==
LOC: ORPAIN 07:21
PROVIDERS: ATTEND Anesthesiology
DX: M54.16 Radiculopathy, lumbar region (principal); Z88.0 Allergy status to penicillin; F17.200 Nicotine dependence, unspecified, uncomplicated
CPT/HCPCS: 62323; J2250; J1030; J3010; Q9966

== ENCOUNTER → 2017-12-06 | Outpatient (CLI) | payer BC ==
[2017-12-06 13:47] VITALS: BP 150/95; PULSE 59; RESP 16
--- NOTE | 2017-12-06 14:02 | P.PN ---
Subjective Progress Note Date: 12/06/17 Principal diagnosis: Lumbar spondylosis without myelopathy This is a 52-year-old gentleman with a history of lower back pain due to degenerative disc disease and lumbar spondylosis. The patient response to a combination of intervention pain procedures and oral medications including tramadol 50 mg 3 times a day plus Motrin and Neurontin. The patient denies any side effects to these medications. His urine drug screen was appropriately positive for tramadol only. Objective - Vital Signs Vital signs: Vital Signs Temp Pulse 59 L 12/06/17 13:43 Resp 16 12/06/17 13:43 BP 150/95 12/06/17 13:43 Pulse Ox Intake & Output 12/05/17 12/06/17 12/06/17 18:59 06:59 18:59 Weight 86.183 kg - EENT Eyes: Present: PERRLA - Respiratory Respiratory: bilateral: CTA - Cardiovascular Rhythm: regular - Neurologic Neurologic: Present: CNII-XII intact - Psychiatric Psychiatric: Present: A&O x's 3, appropriate affect, intact judgment & insight ( Positive tenderness in the lumbar paravertebral area bilaterally.) Assessment and Plan Plan: This is a 52-year-old gentleman with lower back pain due to severe deficits disease and lumbar spondylosis without myelopathy. Today I'll prescribe him tramadol 50 mg 3 times a day and Motrin 800 mg 3 times a day plus Neurontin 600 mg 3 times a day. The patient had lumbar epidural steroid injection a few weeks ago and his pain has been under control. We will see the patient 2 months from now.
== END | disposition home or self-care (01) ==
LOC: PNWHC3 12:14
PROVIDERS: ATTEND Anesthesiology
DX: M47.816 Spondylosis without myelopathy or radiculopathy, lumbar region (principal); M51.36 Other intervertebral disc degeneration, lumbar region; Z79.891 Long term (current) use of opiate analgesic; Z79.1 Long term (current) use of non-steroidal anti-inflammatories (NSAID)
CPT/HCPCS: 99211

== ENCOUNTER → 2018-01-31 | Outpatient (CLI) | payer BC ==
[2018-01-31 12:27] VITALS: BP 138/75; PULSE 70; RESP 16
--- NOTE | 2018-01-31 12:47 | P.PN ---
Subjective Progress Note Date: 01/31/18 This is a 53-year-old gentleman with history of severe DDD at the L5-S1 level. The patient has been getting interventional pain procedures and oral tramadol to help control his pain. The patient denies any side effects to tramadol or the Motrin that has been getting he also takes Neurontin 600 mg 3 times a day. He had an exacerbation of his lower back pain due to the last weekend because he had done too much of physical activity. His pain now is down to 4 out of 10 on a scale from 0-10. He denies any pain in the lower extremities or any numbness or tingling in the legs . Today, pt denies new-onset weakness, bowel/bladder incontinence, or any other signs or symptoms of cauda equina syndrome. There are no signs of acute intoxication, and no indications of medication diversion or overuse. In addition to above, 13-point review of systems is also negative for chest pain , shortness of breath, changes in vision, changes in hearing, new onset weakness , abdominal pain, diarrhea, extreme fatigue, malaise, fever, skin changes, homicidal or suicidal ideation, or bowel or bladder incontinence. Vital Signs: Reviewed in EMR Gen: AAOx3, NAD HEENT: , hearing grossly normal Pulm: resp unlabored Neck: supple, trachea midline Neuro: CN II-XII grossly intact, Imaging: Reviewed in EMR Assessment: Severe degenerative disc disease in the lumbar area Plan: 1. Explanation: Opioid and psychological risk scores were reviewed. Diagnoses , prognoses, and multiple treatment options including but not limited to physical therapy, interventional therapies, adjuvant medical therapies, narcotic medication therapies, and surgery were discussed with the patient and all questions were answered to the patient's satisfaction. 2. Opioid agreement: Signed with the patient and the patient is warned not to use opioids while driving or before driving and not to combine opioids with benzodiazepines or alcohol. 3. Counseling: The patient was counseled extensively on SMOKING CESSATION, BODY MASS INDEX, EXERCISE. Specifically, the patient was instructed regarding the importance of smoking cessation, obesity, and exercise in the context of both chronic pain and overall health. 4. Procedures: None at this point 5. Consultations: None 6. Investigations: None 7. Medications: Continue tramadol 50 mg 3 times a day however I encouraged the patient to go down to 2 times a day if he can. Continue ibuprofen 800 mg 3 times a day with meals if needed for pain. And continue Neurontin 600 mg 3 times a day. 8. Disposition: Return to pain clinic in 2 months. 9. Maps were reviewed and were appropriate PQRS measures: 1-Patient's medications are documented in the chart. 2-Tobacco use is positive,. 3-Patient has had a pneumococcal vaccine. 4-Advanced care planning discussed, patient unable to give. 5-Opioid contract NOT signed with the patient as we do not prescribe fo rher 6-Pain positive, follow-up visit or procedure scheduled 7-Patient's blood pressure measured and documented, within normal limits 8-Patient's weight was measured, and body mass index ABOVE the normal limits, and counseling was done. Patient instructed to follow up with PCP. 9-Patient WAS NOT identified as an unhealthy alcohol user. Objective - Vital Signs Vital signs: Vital Signs Temp Pulse 70 01/31/18 12:22 Resp 16 01/31/18 12:22 BP 138/75 01/31/18 12:22 Pulse Ox 93 L 01/31/18 12:22 Intake & Output 01/30/18 01/31/18 01/31/18 18:59 06:59 18:59 Weight 86.183 kg
== END | disposition home or self-care (01) ==
LOC: PNWHC3 12:17
PROVIDERS: ATTEND Anesthesiology
DX: M51.36 Other intervertebral disc degeneration, lumbar region (principal); F17.200 Nicotine dependence, unspecified, uncomplicated; Z79.1 Long term (current) use of non-steroidal anti-inflammatories (NSAID); Z79.891 Long term (current) use of opiate analgesic
CPT/HCPCS: 99211

== ENCOUNTER → 2018-04-11 | Day surgery (SDC) | payer BC ==
[2018-04-11 06:55] VITALS: TEMP 98.3
--- NOTE | 2018-04-11 07:23 | P.PCN ---
Date of Procedure: 04/11/18 Anesthesia: local Surgeon: Alvina Whalen Pathology: none sent Condition: stable Disposition: PACU Description of Procedure: PREOPERATIVE DIAGNOSIS: Lumber Degenerative Disc Diseases. POSTOPERATIVE DIAGNOSIS: Lumber Degenerative Disc Diseases PROCEDURE 1. Lumbar epidural steroid injection under fluoroscopic guidance at the L4-5 level in the left paramedian approach. 2. Lumbar epidurogram. ANESTHESIA: Local with 1% lidocaine EBL: Minimal PROCEDURE DESCRIPTION / TECHNIQUE: The patient was seen and identified in the preoperative area. Risks, benefits , complications including but not limited to infections ,bleeding ,allergic reaction to the medications ,nerve damage and not complete pain relief , and alternatives were discussed with the patient. The patient agreed to proceed with the procedure and signed the consent. IV was started, and vital signs were stable. Patient was taken to the OR and time out was completed. The patient was placed in the prone position on procedure table and a pillow was placed under the abdomen to reduce lumbar lordosis. The lumbosacral area was prepped and draped in the usual sterile fashion with Betadine 3.Patient was closely monitored during the procedure. Conscious sedation was used during the procedure to decrease patients anxiety. Vital signs were monitered during the entire procedure. Using anterior-posterior fluoroscopy, the L4-5 interlaminar space was identified and the skin over this site was marked and then infiltrated with 1% lidocaine subcutaneously. Subsequently, a 20-gauge Tuohy epidural needle was inserted and advanced toward the epidural space using the Loss of resistance to air technique and guided by AP and lateral fluoroscopy. The correct needle position in the epidural space was verified with the injection of 1 mL of the water soluble contrast dye Omnipaque 180 contrast and observing an excellent epidurogram with the epidural spread of the dye, after negative aspiration for blood and CSF and in the absence of paresthesias. Again after negative aspiration, a 7 ml mixture containing 80 mg of Kenalog and 3 ml of preservative free Normal Saline, and 2 ml of preservative free ropivacaine 0.5% solution was injected and a washout of epidurogram was seen. Needle was withdrawn intact, skin was cleansed, and bandages were applied. patient tolerated procedure well and was transferred to PACU in stable condition. COMPLICATIONS: None
[2018-04-11 07:30] VITALS: RESP 16
[2018-04-11 07:40] VITALS: BP 151/89; PULSE 59
--- NOTE | 2018-04-11 08:31 | FL ---
EXAMINATION TYPE: FL guided pain mgmt statistic DATE OF EXAM: 04/11/2018 HISTORY: Pain LUMBAR EPID INJECTION. DR. ROLLINS. 4 SEC FL. 2 IMAGES SCANNED.
== END | disposition home or self-care (01) ==
LOC: ORPAIN 06:12
PROVIDERS: ATTEND Anesthesiology
DX: M51.36 Other intervertebral disc degeneration, lumbar region (principal)
CPT/HCPCS: 62323; J3301; Q9966

== ENCOUNTER 2018-04-25 07:22 | Day surgery (SDC) | payer BC ==
[2018-04-25 08:03] VITALS: TEMP 98
[2018-04-25] MEDS ORDERED: LIDOCAINE 1% 20 ML VIAL (10MG/ML) FOR IV START INTRADERMA ONE (08:04)
--- NOTE | 2018-04-25 08:52 | P.PCN ---
Date of Procedure: 04/25/18 Procedure(s) Performed: PREOPERATIVE DIAGNOSIS: 1- Lumbar Degenerative Disc Diseases 2-Lumbar spondylosis with Facet arthropathy without myelopathy. 3-lumbar radiculopathy. POSTOPERATIVE DIAGNOSIS: 1-Lumber Degenerative Disc Diseases 2-Lumbar spondylosis with Facet arthropathy without myelopathy. 3-lumbar radiculopathy. PROCEDURE 1. Lumbar epidural steroid injection under fluoroscopic guidance at the L4-5 level. 2. Lumbar epidurogram. ANESTHESIA: Local with 1% lidocaine 3 ml and , moderate sedation with intravenous Versed 2 mg ,and fentanyle 50 Mcg EBL: Minimal PROCEDURE INDICATION: The patient with low back pain and radiculitis symptoms unresponsive to conservative treatment. Fluoroscopy was used to optimize visualization of the needle placement and to maximize safety. PROCEDURE DESCRIPTION / TECHNIQUE: The patient was seen and identified in the preoperative area. Risks, benefits , complications including but not limited to infections ,bleeding ,allergic reaction to the medications ,nerve damage and not complete pain releife , and alternatives were discussed with the patient. The patient agreed to proceed with the procedure and signed the consent. IV was started, and vital signs were stable. Patient was taken to the OR and time out was completed. The patient was placed in the prone position on procedure table and a pillow was placed under the abdomen to reduce lumbar lordosis. The lumbosacral area was prepped and draped in the usual sterile fashion.ere closely monitored during the procedure. Conscious sedation was used during the procedure to decrease patients anxiety. Vital signs was monitered during the entire procedure. Using anterior-posterior fluoroscopy, the L4-5 interlaminar space was identified and the skin over this site was marked and then infiltrated with 1% lidocaine subcutaneously. Subsequently, a 20-gauge Tuohy epidural needle was inserted and advanced toward the epidural space using the ``Loss of resistance technique and guided by AP and lateral fluoroscopy. The correct needle position in the epidural space was verified with the injection of 2 mL of the water soluble contrast dye Isovue 200 contrast and observing an excellent epidurogram with the epidural spread of the dye, after negative aspiration for blood and CSF and in the absence of paresthesias. Again after negative aspiration, a 6 ml mixture containing 80 mg of Depo-medrol , and 2 ml of preservative free Normal Saline, and 2 ml of preservative free lidocaine 1% solution was injected and a washout of epidurogram was seen. Needle was withdrawn intact, skin was cleansed, and bandages were applied. COMPLICATIONS: None DISPOSITION / PLANS: The patient was placed in a supine position and transferred to the recovery area in a stable condition for observation. There was no evidence of lower extremity motor or sensory deficit after the procedure. Patient was discharged from the recovery room after meeting discharge criteria. Home discharge instructions were given to the patient by the staff. The patient was reexamined prior to discharge. The patient will schedule a follow up in the clinic in 2-4 weeks.
[2018-04-25] MEDS ORDERED: IV FLUID CONTINUATION 1,000 ML IV ONE (09:00)
[2018-04-25 09:03] VITALS: PULSE 59; RESP 18
[2018-04-25 09:24] VITALS: BP 150/80
--- NOTE | 2018-04-25 09:40 | FL ---
Fluoroscopy HISTORY: Pain 1 seconds fluoroscopy time supplied to the referring clinician. 1 intraoperative C-arm images docume nt the procedure. See dictated report from anesthesia.
== END 2018-04-25 09:37 | disposition home or self-care (01) ==
LOC: ORPAIN 07:22
PROVIDERS: ATTEND Specialist
DX: M47.26 Other spondylosis with radiculopathy, lumbar region (principal); M51.16 Intervertebral disc disorders with radiculopathy, lumbar region; Z91.09 Other allergy status, other than to drugs and biological substances
CPT/HCPCS: 62323; J2250; J1030; J3010; Q9966

== ENCOUNTER 2018-05-11 07:57 | Day surgery (SDC) | payer BC ==
[~2018-05-11 07:57] MED LIST changes: -LACTATED RINGERS 1,000 ML IV SCH; +SODIUM CHLORIDE 0.9% 500 ML 500 ML IV SCH
[2018-05-11 08:12] VITALS: TEMP 97.9
--- NOTE | 2018-05-11 09:47 | P.PCN ---
Date of Procedure: 05/11/18 Procedure(s) Performed: PREOPERATIVE DIAGNOSIS: 1- Lumbar Degenerative Disc Diseases 2-Lumbar spondylosis with Facet arthropathy without myelopathy. 3-lumbar radiculopathy. POSTOPERATIVE DIAGNOSIS: 1-Lumber Degenerative Disc Diseases 2-Lumbar spondylosis with Facet arthropathy without myelopathy. 3-Lumbar radiculopathy PROCEDURE 1. Lumbar epidural steroid injection under fluoroscopic guidance at the L4-5 level. 2. Lumbar epidurogram. ANESTHESIA: Local with 1% lidocaine 3 ml and , moderate sedation with intravenous Versed 2 mg ,and fentanyle 50 Mcg EBL: Minimal PROCEDURE INDICATION: The patient with low back pain and radiculitis symptoms unresponsive to conservative treatment. Fluoroscopy was used to optimize visualization of the needle placement and to maximize safety. PROCEDURE DESCRIPTION / TECHNIQUE: The patient was seen and identified in the preoperative area. Risks, benefits , complications including but not limited to infections ,bleeding ,allergic reaction to the medications ,nerve damage and not complete pain releife , and alternatives were discussed with the patient. The patient agreed to proceed with the procedure and signed the consent. IV was started, and vital signs were stable. Patient was taken to the OR and time out was completed. The patient was placed in the prone position on procedure table and a pillow was placed under the abdomen to reduce lumbar lordosis. The lumbosacral area was prepped and draped in the usual sterile fashion.ere closely monitored during the procedure. Conscious sedation was used during the procedure to decrease patients anxiety. Vital signs was monitered during the entire procedure. Using anterior-posterior fluoroscopy, the L4-5 interlaminar space was identified and the skin over this site was marked and then infiltrated with 1% lidocaine subcutaneously. Subsequently, a 20-gauge Tuohy epidural needle was inserted and advanced toward the epidural space using the ``Loss of resistance technique and guided by AP and lateral fluoroscopy. The correct needle position in the epidural space was verified with the injection of 2 mL of the water soluble contrast dye Isovue 200 contrast and observing an excellent epidurogram with the epidural spread of the dye, after negative aspiration for blood and CSF and in the absence of paresthesias. Again after negative aspiration, a 6 ml mixture containing 80 mg of Depo-Medrol and 2 ml of preservative free Normal Saline, and 2 ml of preservative free lidocaine 1% solution was injected and a washout of epidurogram was seen. Needle was withdrawn intact, skin was cleansed, and bandages were applied. COMPLICATIONS: None DISPOSITION / PLANS: The patient was placed in a supine position and transferred to the recovery area in a stable condition for observation. There was no evidence of lower extremity motor or sensory deficit after the procedure. Patient was discharged from the recovery room after meeting discharge criteria. Home discharge instructions were given to the patient by the staff. The patient was reexamined prior to discharge. The patient will schedule a follow up in the clinic in 2-4 weeks.
[2018-05-11 10:18] VITALS: PULSE 68; RESP 18
[2018-05-11 10:37] VITALS: BP 148/83
--- NOTE | 2018-05-11 10:44 | XR ---
EXAMINATION TYPE: XR lumbar spine 1V DATE OF EXAM: 05/11/2018 COMPARISON: NONE HISTORY: 53-year-old male pain, lumbar epidural injection TECHNIQUE: Single prone portable AP view FINDINGS: There is a spinal needle in place at the L4-L5 level with contrast injection outlining the left luis edian epidural space. No fluoroscopy time. IMPRESSION: Image during L4-L5 epidural injection. Contrast outlines the epidural space.
== END 2018-05-11 10:39 | disposition home or self-care (01) ==
LOC: ORPAIN 07:57
PROVIDERS: ATTEND Specialist
DX: M51.16 Intervertebral disc disorders with radiculopathy, lumbar region (principal); M47.26 Other spondylosis with radiculopathy, lumbar region
CPT/HCPCS: 72020; 62323; J2250; J1030; J3010; Q9966; 99152

== ENCOUNTER → 2018-05-23 | Outpatient (CLI) | payer BC ==
--- NOTE | 2018-05-23 12:09 | XR ---
EXAMINATION TYPE: XR chest 2V DATE OF EXAM: 05/23/2018 COMPARISON: 03/31/2017 HISTORY: 53 year-old male shortness of breath, COPD TECHNIQUE: Frontal and lateral views FINDINGS: Heart upper limits of normal in size. Strandy areas of atelectasis in the lower lungs. Slightly low l licha volumes crowding the vascular markings. Mild interstitial prominence and peribronchial cuffing. N o consolidation or pleural effusion. IMPRESSION: Hypoventilatory changes accentuating the lung markings. Mild interstitial changes and peribronchial c uffing persists and could represent chronic bronchitis or asthma. No definite acute change.
== END | disposition home or self-care (01) ==
LOC: RADXRMAIN 10:29
PROVIDERS: ATTEND Family Medicine
DX: J84.89 Other specified interstitial pulmonary diseases (principal); J44.9 Chronic obstructive pulmonary disease, unspecified
CPT/HCPCS: 71046

== ENCOUNTER → 2018-06-21 | Outpatient (CLI) | payer BC ==
[2018-06-21 11:42] VITALS: BP 143/86; PULSE 62; RESP 18
--- NOTE | 2018-06-21 12:31 | P.PAINPG ---
Subjective Progress Note Date: 06/21/18 This is follow-up visit for this patient with a history of severe and chronic low back pain secondary to lumbar degenerative disc diseases , lumbar spondylosis with facet arthropathy, We have done interventional pain procedures, lumbar epidural steroid injections and patient had good benefit from it. Patients currently on Ultram 50 mg every 6 hours when necessary, Motrin 800 mg every 8 hours when necessary, and Neurontin 600 mg every 6 hours Patient denies any side effects of the medication, denies excessive drowsiness or sleepiness, denies suicidal ideation, and reports that the current pain medication is helping to control the pain and improve activity of daily living Patient denies any motor or sensory deficit , patient denies any fever or night sweats, denies any change in the bowel movements or urination Physical Examinations : 1-Constitutional : Cooperative , not in acute distress . 2-HEENT : nech ; supple , no Lymphadenopathy , no Thyromegaly , normal thyroid size . eyes : no ptosis , no icterus, no photophobia . ENT : normal of hearing , normal oropharynx , no Thrush . 3- Respiratory : Chest clear to auscultations Bilaterally , no wheezing , no Rhonchi . 4- Cardiovascular : regular rate and rhythem , S1 , S2 , no S3 , no S4. 5- Gastrointestinal : abdomen soft no tenderness , bowel sounds positive all four quadrents , no organomegally . 6- Genitourinary : Defferred . 7- neurologic: Cranial nerve II to XII intact , no focal neurological deffecit . 8- Psychatric: alert , oriented X 3 , appropriate affect , intact judgment and insight . 9- Lymphatic : no Lymphadenopathy . 10- Musculoskeltal exams of the Lumber spine =motor strength lower extremities ,thigh and legs .5/5 deep tendon reflexes : normal Knee Jerk , normal ankle Jerk . lumber facet Loading Test positive strait leg raising test positive at 30 degree , RT ,LT , Fabere test positive RT and positive LT . Range of motion: Range of motion in flexion of the lumbar spine 30 degrees Range of motion range of motion of extension of the lumbar spine 10 Assessment and plan = Chronic low back pain secondary to lumbar degenerative disc disease , lumbar spondylosis with facet arthropathy without myelopathy chronic and current use of high-risk medication (Opioids). The patient was counseled about risk of opioid use, psychological risk associated with opioids and was orally counseled to not overuse , divert,or sell dictations to take medications as prescribed only , and to restore medication in safe location , the patient counseled against driving while using narcotic medications , and also not to use alcohol or any illicit recreational drugs, patient's verbalized understanding that the lack of compliance will result in failure to renew narcotic prescription and possible discharge from the clinic - diagnoses, prognosis, and treatment options including but not limited to physical therapy, surgical interventions, interventional therapies , and medication management including narcotics and adjuvant medication were discussed with the patient and all the questions answered MAPS reviewed and it was apropriate , UDS order today Prescription refill for Ultram 50 mg every 8 hours dispense 90 with 1 refill, and Neurontin 600 mg every 6hours dispense 120 with one refill, Motrin 800 mg every 8 hours dispense 90 with 1 refill Objective - Vital Signs Vital signs: Vital Signs Temp Pulse 62 06/21/18 11:38 Resp 18 06/21/18 11:38 BP 143/86 06/21/18 11:38 Pulse Ox 96 06/21/18 11:38 Intake & Output 06/20/18 06/21/18 06/21/18 18:59 06:59 18:59 Weight 88.451 kg PQRS Measure Charge Sheet Measure #130: Documentation of Current Meds in Medical Chart: Patient's medications documented in chart Measure #226: Tobacco Use: Screen & Cessation Intervention: Pt screened for tobacco use AND intervention given Measure #111: Pneumonia Vaccination: Pneumococcal vaccine administered or previously received Measure #47: Advance Care Plan: Advance care planning discussed & documented, pt chose/unable to give Measure #412: Opioid Treatment Agreement: Documented signed opioid trtmnt agreemnt min once during opioid trtmnt Measure #408: Opioid Therapy Follow-up Evaluation: Patient had f/u eval minimum every 3 months during opioid therapy Measure #317: Preventitive Care & Scrn High Bld Press & F/U: Pre-hypertensive or hypertensive BP documented, pt will f/u with PCP Measure #128: Body Mass Index (BMI) Screening & Follow-up: BMI documented ABOVE normal parameters - f/u documented Measure #131: Pain Assessment & Follow-up: Pain positive & plan documented, Follow-up scheduled Measure #431: Unhealthy Alcohol Use Preventative Care & Scrn: Patient not identified as an unhealthy alcohol user PQRS Narrative: Smoking Status Current every day smoker Do You Want the Pneumonia Vaccine Up to Date Vaccine AT THIS TIME? Narcotic Agreement Date Signed 11/30/16 Blood Pressure 143/86 Pain Intensity [Lower Back] 4 Hx Alcohol Use (MH) No Home Medications: Ambulatory Orders Multivitamin [Men's Multi-Vitamin] 1 tab PO DAILY 01/08/16 Gabapentin 600 mg PO QID #120 tablet 06/21/18 Ibuprofen 800 mg PO TID #90 tablet 06/21/18 traMADol HCL [Ultram] 50 mg PO Q8HR PRN #90 tab 06/21/18 Controlled Substance Measures - Controlled Substance Measures Is patient prescribed a controlled substance at discharge?: Yes When asked, does pt state using other controlled substances?: No If prescribed controlled substance>3 days was MAPS reviewed?: Yes If Rx opioid, was Start Talking consent form obtained?: Yes If opioid is for acute pain is fill amount 7 days or less?: No Was information provided regarding opioid addiction?: Yes
== END | disposition home or self-care (01) ==
LOC: PNWHC3 11:19
PROVIDERS: ATTEND Specialist
DX: G89.29 Other chronic pain (principal); M54.5 Low back pain; M51.36 Other intervertebral disc degeneration, lumbar region; M47.816 Spondylosis without myelopathy or radiculopathy, lumbar region; M46.86 Other specified inflammatory spondylopathies, lumbar region; F11.90 Opioid use, unspecified, uncomplicated; F17.200 Nicotine dependence, unspecified, uncomplicated; Z98.890 Other specified postprocedural states; Z79.899 Other long term (current) drug therapy; Z71.89 Other specified counseling; Z79.1 Long term (current) use of non-steroidal anti-inflammatories (NSAID); Z71.6 Tobacco abuse counseling
CPT/HCPCS: 80307; 99211; G0482

== ENCOUNTER 2018-08-29 09:57 | Day surgery (SDC) | payer BC ==
[2018-08-29 10:11] VITALS: RESP 16; TEMP 97.6
[2018-08-29] MEDS ORDERED: LIDOCAINE 1% 20 ML VIAL (10MG/ML) FOR IV START INTRADERMA ONE (10:13)
[2018-08-29] MEDS ORDERED: LACTATED RINGERS 1,000 ML IV ONE (10:13)
--- NOTE | 2018-08-29 11:01 | P.PCN ---
Date of Procedure: 08/29/18 Procedure(s) Performed: PREOPERATIVE DIAGNOSIS: 1-Lumbar Spondylosis with Facet Arthropathy without myelopathy. POSTOPERATIVE DIAGNOSIS: 1- Lumbar Spondylosis with Facet Arthropathy without myelopathy. PROCEDURES : Left Radiofrequency thermocoagulation, L3-L4, L4-L5, and L5-S1 medial branch, with fluoroscopic guidance ANESTHESIA: Moderate sedation with versed 2 mg, and fentaneyl 100 mcg and local infiltration with lidocaine 1% 3 ml EBL: Minimal PROCEDURE INDICATION: The patient with low back pain secondary to lumbar facet arthropathy who had more than 50% relief of her pain with previous diagnostic lumbar medial branch block with bupivacaine. we have done the radiofrequency ablation of the medial branch 6 months ago , the patient had good pain relief for 6 months, and he is here today to have a repeat radiofrequency of the medial branch lumbar area . PROCEDURE DESCRIPTION / TECHNIQUE: The patient was seen and identified in the preoperative area. Risks, benefits, complications, including but not limited to risk of infection ,bleeding , allergic reactions to the medications and no complete pain releife , and alternatives were discussed with the patient, the patient agreed to proceed with the procedure and signed the consent. IV was started. Vital signs remained stable throughout the procedure. Patient was taken to the OR and time out was completed. The patient was placed in the prone position on the procedure table. The lumber area was prepped and draped in the usual sterile fashion. . Vital signs were closely monitored during the procedure .IV sedation was used during the procedure to decrease patients anxiety. Using AP and then oblique fluoroscopy, the eye of the Otilio dog corresponding to the connection between the superior and transverse articular processes of left L3, L4, and L5 were identified, marked, and localized with 1 % lidocaine. Subsequently, a 18 [id number] radiofrequency cannula with a 10- mm active tip was advanced guided by fluoroscopy to each of the eyes of the Otilio dog at left L3, L4, and L5. Each site then underwent sensory testing at 50 Hz and 0 to 1 volt and motor testing at 2.5 Hz and 0 to 3 volt with local stimulation, but no radicular symptoms down the legs. Thereafter the left L3-4, L4-5, and L5-S1 sites underwent radiofrequency thermocoagulation at 80 degrees celsius for 90 seconds after injecting 0.5 ml of PF lidocaine 1%. then After the thermocoagulation done , 1 ml of the block solution containing Depo-Medrol 40 mg and 3 ml of Ropivacaine 0.5% was injected at the left L3-4 , L4-5 , and L5-S1, levels after negative aspiration of CSF and blood and with no paresthesias. Cannulas were retracted while injecting lidocaine 1% until the needle is out. At the end of the procedure, the skin was cleansed and bandages were applied. COMPLICATIONS: No acute complications. DISPOSITION / PLANS: The patient was placed in a supine position and transferred to the recovery area in a stable condition for observation and was discharged from the recovery room after meeting discharge criteria. Home discharge instructions given to the patient by the staff. The patient was reexamined prior to discharge. The patient will schedule a follow up in the clinic in 2-4 weeks.
[2018-08-29] MEDS ORDERED: IV FLUID CONTINUATION 700 ML IV ONE (11:03)
[2018-08-29 11:08] VITALS: PULSE 63
[2018-08-29 11:21] VITALS: BP 156/99
--- NOTE | 2018-08-29 12:47 | FL ---
EXAMINATION TYPE: FL guided pain mgmt statistic DATE OF EXAM: 08/29/2018 CLINICAL HISTORY: Low back pain. TECHNIQUE: Fluoroscopy. COMPARISON: None. FINDINGS: Fluoroscopic guidance was provided during pain relief procedure performed by Dr. Orozco . A total of 18 seconds of fluoroscopic time was utilized during the procedure and 3 spot images are acquired. Images acquired shows needle localization demonstrating multifocal localization of the danny mbosacral spine. IMPRESSION: As Above.
== END 2018-08-29 11:30 | disposition home or self-care (01) ==
LOC: ORPAIN 09:57
PROVIDERS: ATTEND Specialist
DX: G89.29 Other chronic pain (principal); M47.816 Spondylosis without myelopathy or radiculopathy, lumbar region; M51.36 Other intervertebral disc degeneration, lumbar region; Z79.899 Other long term (current) drug therapy; Z79.891 Long term (current) use of opiate analgesic
CPT/HCPCS: 64635; 64636 ×2; J2250; J1030; J3010; 99152

== ENCOUNTER → 2018-09-12 | Day surgery (SDC) | payer BC ==
[~2018-09-12] MED LIST changes: +IV FLUID CONTINUATION 1,000 ML IV ONE; +LACTATED RINGERS 1,000 ML IV ONE; +LIDOCAINE 1% 20 ML VIAL (10MG/ML) FOR IV START INTRADERMA ONE; -SODIUM CHLORIDE 0.9% 500 ML 500 ML IV SCH
[2018-09-12 09:05] VITALS: RESP 16; TEMP 97.6
--- NOTE | 2018-09-12 09:27 | P.PCN ---
Date of Procedure: 09/12/18 Anesthesia: MAC (Conscious sedation) Description of Procedure: PREOPERATIVE DIAGNOSIS: Lumbar Facet Arthropathy. POSTOPERATIVE DIAGNOSIS: Lumbar Facet Arthropathy. PROCEDURES : right Radiofrequency thermocoagulation, L3, L4, and L5 medial branch, with fluoroscopic guidance ANESTHESIA: IV sedation with versed and fentanyl and local infiltration with lidocaine 1% 10 ml EBL: Minimal PROCEDURE INDICATION: The patient with low back pain secondary to lumbar facet arthropathy who had more than 50% relief of pain with previous diagnostic lumbar medial branch block with local anesthetic. PROCEDURE DESCRIPTION / TECHNIQUE: The patient was seen and identified in the preoperative area. Risks, benefits, complications, including but not limited to risk of infection ,bleeding , allergic reactions to the medications and no complete pain relief , and alternatives were discussed with the patient, the patient agreed to proceed with the procedure and signed the consent. IV was started. Vital signs remained stable throughout the procedure. Patient was taken to the OR and time out was completed. The patient was placed in the prone position on the procedure table. The lumber area was prepped and draped in the usual sterile fashion. . Vital signs were closely monitored during the procedure .IV sedation was used during the procedure to decrease patient anxiety. Using AP and then oblique fluoroscopy, the eye of the Otilio dog corresponding to the connection between the superior and transverse articular processes of right L3, L4, and L5 were identified, marked, and localized with 1% lidocaine. Subsequently, a 20 [id number] radiofrequency cannula with a 10-mm active tip was advanced guided by fluoroscopy to each of the eyes of the Otilio dog at L3 , L4, and L5. Each site then underwent sensory testing at 50 Hz and 0 to 1 volt and motor testing at 2.5 Hz and 0 to 3 volt with local stimulation, but no radicular symptoms down the legs. Thereafter the L3, L4, and L5 sites underwent radiofrequency thermocoagulation at 80 degrees celsius for 90 seconds after injecting 0.5 ml of PF lidocaine 1%. Then after the thermocoagulation was done , 1 ml of the block solution containing marcaine 0.5 % was injected at the right L3 , L4 , and L5, levels after negative aspiration of CSF and blood and with no paresthesias. Cannulas were retracted. At the end of the procedure, the skin was cleansed and bandages were applied. COMPLICATIONS: No acute complications. DISPOSITION / PLANS: The patient was placed in a supine position and transferred to the recovery area in a stable condition for observation and was discharged from the recovery room after meeting discharge criteria. Home discharge instructions given to the patient by the staff. The patient was reexamined prior to discharge. We will perform the other side in 2 weeks or have the patient follow-up in the clinic
[2018-09-12 10:13] VITALS: BP 141/80; PULSE 67
--- NOTE | 2018-09-12 10:37 | FL ---
Fluoroscopy INDICATION: Pain FINDINGS: Fluoroscopy time: 8 seconds. Images obtained: 1. IMPRESSIONS: 1. Documentation of fluoroscopy.
== END ==
LOC: ORPAIN 08:48
PROVIDERS: ATTEND Hospitalist
DX: G89.29 Other chronic pain (principal); M51.36 Other intervertebral disc degeneration, lumbar region; M47.816 Spondylosis without myelopathy or radiculopathy, lumbar region; Z79.899 Other long term (current) drug therapy; Z88.0 Allergy status to penicillin
CPT/HCPCS: 64635; 64636; J2250; J3010; 99152

== ENCOUNTER → 2018-10-11 | Outpatient (CLI) | payer BC ==
[2018-10-11 12:10] VITALS: BP 134/84; PULSE 69; RESP 18
--- NOTE | 2018-10-11 12:47 | P.PAINPG ---
Subjective Progress Note Date: 10/11/18 Principal diagnosis: Lumbar spondylosis This a very pleasant 53-year-old gentleman with history lumbar spondylosis presents today for follow-up appointment. He is recently undergone bilateral sacral iliac joint injections. He reports good reduction in his pain from these procedures. He has started weaning down his medications. He is now taking Neurontin 300 mg by mouth 3 times a day. This is down from 4 times a day. He continues to take Motrin and tramadol. 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 Objective - Vital Signs Vital signs: Vital Signs Temp Pulse 69 10/11/18 12:04 Resp 18 10/11/18 12:04 BP 134/84 10/11/18 12:04 Pulse Ox 95 10/11/18 12:04 Intake & Output 10/10/18 10/11/18 10/11/18 18:59 06:59 18:59 Weight 90.718 kg - Exam General: The patient is alert and oriented. Patient is not sedated Patient answers all question appropriately. Cardiac: Heart is regular in rate and rhythm Respiratory: Clear to auscultation. No audible wheezes. Abdomen: Soft nontender nondistended. Musculoskeletal: Strength is normal bilaterally. Sensation is normal bilaterally. Straight leg raise is negative bilaterally. Neurological: Reflexes are preserved and symmetric bilaterally. Assessment and Plan Plan: Plan of Care 1. Medications: I've advised the patient start weaning down on his medications. He will continue to wean down on his tramadol as well as his gabapentin and ibuprofen. I've counseled him on the specific risks of each of his medications. He will work as hard as he can to decrease his medicines. I have also encouraged him to consider other opportunities such as yoga and an anti- inflammatory diet to help manage his pain. I have reviewed the patient's MAPS report and it reveals expected results. Patient has signed an opiate agreement as well as opiate consent for treatment in our clinic. They understand the risks and benefits of opiate medications. They are aware of the potential for addiction. 2. Interventions: None 3. Referrals: None 4. Testing: None 5. Follow-up: 2 months PQRS Measure Charge Sheet Measure #130: Documentation of Current Meds in Medical Chart: Patient's medications documented in chart Measure #226: Tobacco Use: Screen & Cessation Intervention: Pt screened for tobacco use AND intervention given Measure #111: Pneumonia Vaccination: Pneumococcal vaccine administered or previ ously received Measure #47: Advance Care Plan: Advance care planning discussed & documented, plan or surrogate given Measure #412: Opioid Treatment Agreement: Documented signed opioid trtmnt agreemnt min once during opioid trtmnt Measure #408: Opioid Therapy Follow-up Evaluation: Patient had f/u eval minimum every 3 months during opioid therapy Measure #317: Preventitive Care & Scrn High Bld Press & F/U: Normal blood pressure, f/u not required Measure #128: Body Mass Index (BMI) Screening & Follow-up: BMI documented within normal parameters Measure #131: Pain Assessment & Follow-up: Pain positive & plan documented Measure #431: Unhealthy Alcohol Use Preventative Care & Scrn: Patient not identified as an unhealthy alcohol user PQRS Narrative: Smoking Status Current every day smoker Do You Want the Pneumonia No Vaccine AT THIS TIME? Narcotic Agreement Date Signed 11/30/16 Blood Pressure 134/84 Pain Intensity [Lower Back] 3 Hx Alcohol Use (MH) No Home Medications: Ambulatory Orders Multivitamin [Men's Multi-Vitamin] 1 tab PO DAILY 01/08/16 Gabapentin 600 mg PO Q8HR #90 tablet 08/16/18 Ibuprofen 800 mg PO TID #90 tablet 08/16/18 traMADol HCL [Ultram] 50 mg PO Q8HR PRN #90 tab 08/16/18 Controlled Substance Measures - Controlled Substance Measures Is patient prescribed a controlled substance at discharge?: Yes When asked, does pt state using other controlled substances?: No If prescribed controlled substance>3 days was MAPS reviewed?: Yes
== END ==
LOC: PNWHC3 11:53
PROVIDERS: ATTEND Pain Medicine Pain Medicine
DX: M47.816 Spondylosis without myelopathy or radiculopathy, lumbar region (principal); F17.200 Nicotine dependence, unspecified, uncomplicated; Z79.899 Other long term (current) drug therapy; Z79.1 Long term (current) use of non-steroidal anti-inflammatories (NSAID)
CPT/HCPCS: 99211

== ENCOUNTER → 2018-12-06 | Outpatient (CLI) | payer BC ==
[2018-12-06 11:54] VITALS: BP 135/87; PULSE 95; RESP 18
--- NOTE | 2018-12-07 07:45 | P.PAINPG ---
Subjective Progress Note Date: 12/06/18 This is a 53 years old male with a chronic history of low back pain, is diagnosed with lumbar spondylosis with lumbar facet arthropathy, recently we've done radiofrequency ablation of the medial branch lumbar area, he reports his pain improved significantly, and activity of daily livings improved, he denies any motor or sensory deficits, he denies any fever or night sweats, and he continued to use ultram 50 mg every 8 hours, Neurontin 600 mg 3 times a day, Motrin 800 mg 3 times a day when necessary, he denies any side effect of the medication, he denies any suicidal ideation, and he report the current medication helping him to control his pain Objective - Vital Signs Vital signs: Vital Signs Temp Pulse 95 12/06/18 11:45 Resp 18 12/06/18 11:45 BP 135/87 12/06/18 11:45 Pulse Ox 95 12/06/18 11:45 Intake & Output 12/06/18 12/07/18 12/07/18 18:59 06:59 18:59 Weight 88.451 kg - Exam Physical Examinations : -Constitutiona : Cooperative , not in acute distress . -HEENT : nech ; supple , no Lymphadenopathy , normal thyroid size . eyes : no ptosis , no icterus, no photophobia . - neurologic : Cranial nerve II to XII intact , no focal neurological deffecit . -psychatric : alert , oriented X 3 , appropriate affect , intact judgment and insight . -Lymphatic : no Lymphadenopathy . - musculoskeltal : Lumber spine moter stegnth lower extremities ,thigh and legs 5/5 Right side , 5/5 Left side Assessment and Plan Plan: Assessment and plan= chronic low back pain secondary to , lumbar spondylosis with lumbar facet arthropathy . . Improved after radiofrequency ablation of the medial branch lumbar area chronic and current use of high-risk medication (opioids) Patient denies any side effects of the current pain medication and the current treatment/medication helping the patient to do activity of daily living , Diagnoses, prognosis, treatment options, including but not limited to physical therapy, medication management, interventional therapies, and surgery, were discussed with the patient All the questions answered The narcotic consent was signed and patient agreed and understood the side effects and complications of opioid treatment. Patient signed the narcotic agreement, and was orally counseled, not to overuse, not to abuse, not to Divert , not tp sell pain medication, and to take it as prescribed only, Patient was counseled not to drive or operate heavy equipment while using narcotic medication, and advised not to use alcohol or any Illicit drugs while using the narcotis. understanding that lack of compliance with any of the above instructions, will likely to cause discharge from, the pain service, not to renew his narcotic prescriptions MAPS Reviwed and it was apropriate . Medication managements= I will decrease the Neurontin from 600 mg 3 times a day to 400 mg 3 times a day , and legs visit we'll decrease it more as tolerated, Prescription refill for Ultram 50 mg every 8 hours dispense 90 with 1 refill, continue Motrin 800 mg 3 times a day when necessary Patient will follow up with the pain clinic in 2 months , Time with Patient: Less than 30 PQRS Measure Charge Sheet Measure #130: Documentation of Current Meds in Medical Chart: Patient's medications documented in chart Measure #226: Tobacco Use: Screen & Cessation Intervention: Pt screened for tobacco use AND intervention given Measure #111: Pneumonia Vaccination: Pneumococcal vaccine administered or previously received Measure #47: Advance Care Plan: Advance care planning discussed & documented, pt chose/unable to give Measure #412: Opioid Treatment Agreement: Documented signed opioid trtmnt agreemnt min once during opioid trtmnt Measure #408: Opioid Therapy Follow-up Evaluation: Patient had f/u eval minimum every 3 months during opioid therapy Measure #317: Preventitive Care & Scrn High Bld Press & F/U: Normal blood pressure, f/u not required Measure #128: Body Mass Index (BMI) Screening & Follow-up: BMI documented ABOVE normal parameters - f/u documented Measure #131: Pain Assessment & Follow-up: Pain positive & plan documented, Follow-up scheduled Measure #431: Unhealthy Alcohol Use Preventative Care & Scrn: Patient not identified as an unhealthy alcohol user PQRS Narrative: Smoking Status Current every day smoker Do You Want the Pneumonia Yes Vaccine AT THIS TIME? Narcotic Agreement Date Signed 11/30/16 Blood Pressure 135/87 Pain Intensity [Lower Back] 4 Scale Used Numeric (1 - 10) Hx Alcohol Use (MH) No Home Medications: Ambulatory Orders Multivitamin [Men's Multi-Vitamin] 1 tab PO DAILY 01/08/16 Gabapentin 600 mg PO Q8HR #90 tablet 08/16/18 Ibuprofen 800 mg PO TID #90 tablet 08/16/18 traMADol HCL [Ultram] 50 mg PO Q8HR PRN #90 tab 08/16/18 Controlled Substance Measures - Controlled Substance Measures Is patient prescribed a controlled substance at discharge?: Yes When asked, does pt state using other controlled substances?: No If prescribed controlled substance>3 days was MAPS reviewed?: Yes If Rx opioid, was Start Talking consent form obtained?: Yes If opioid is for acute pain is fill amount 7 days or less?: No Was information provided regarding opioid addiction?: Yes
== END ==
LOC: PNWHC3 11:35
PROVIDERS: ATTEND Specialist
DX: G89.29 Other chronic pain (principal); M47.816 Spondylosis without myelopathy or radiculopathy, lumbar region; M46.96 Unspecified inflammatory spondylopathy, lumbar region; F17.200 Nicotine dependence, unspecified, uncomplicated; Z79.899 Other long term (current) drug therapy; Z79.1 Long term (current) use of non-steroidal anti-inflammatories (NSAID)
CPT/HCPCS: 99211

== ENCOUNTER 2019-01-23 10:51 | Emergency (ER) | payer BC ==
[2019-01-23] MEDS ORDERED: LIDOCAINE 1% INJ 10MG/ML (20 ML MDV) SQ ONE (11:23)
[2019-01-23 11:26] VITALS: BP 151/96; PULSE 60; RESP 18; TEMP 98
--- NOTE | 2019-01-23 11:54 | ED ---
General Adult HPI - General Chief complaint: Skin/Abscess/Foreign Body Stated complaint: infected bug bite Time Seen by Provider: 01/23/19 11:10 Source: patient, RN notes reviewed Mode of arrival: ambulatory Limitations: no limitations - History of Present Illness Initial comments: 53-year-old male presents to the emergency department for a chief complaint of abscess to the right leg. Patient states that this has been ongoing for the past 2 days. States that he is not sure if he got bitten by a bug or why he has this. States he did try to pop earlier today but could not do so. Denies fevers or chills. Does admit seems somewhat red around the area. Does admit to pain around the area.Patient has no other complaints at this time including shari rtness of breath, chest pain, abdominal pain, nausea or vomiting, headache, or visual changes. - Related Data Home Medications Medication Instructions Recorded Confirmed Multivitamin [Men's Multi-Vitamin] 1 tab PO DAILY 01/08/16 12/06/18 Previous Rx's Medication Instructions Recorded Gabapentin 600 mg PO Q8HR #90 tablet 08/16/18 Ibuprofen 800 mg PO TID #90 tablet 08/16/18 traMADol HCL [Ultram] 50 mg PO Q8HR PRN #90 tab 08/16/18 Cephalexin [Keflex] 500 mg PO Q6H 10 Days cap 01/23/19 Sulfamethox-Tmp 800-160Mg [Bactrim 1 tab PO Q12HR #20 tab 01/23/19 DS 800-160 mg] Allergies Allergy/AdvReac Type Severity Reaction Status Date / Time Penicillins Allergy SEIZURE Verified 12/06/18 11:44 Review of Systems ROS Statement: Those systems with pertinent positive or pertinent negative responses have been documented in the HPI. ROS Other: All systems not noted in ROS Statement are negative. Past Medical History Past Medical History: Musculoskeletal Disorder Additional Past Medical History / Comment(s): LUMBAR DDD-NUMBNESS & TINGLING IN LT LEG TO FEET OCCASIONALLY- USES TENS UNIT PRN History of Any Multi-Drug Resistant Organisms: None Reported Past Surgical History: No Surgical Hx Reported Additional Past Surgical History / Comment(s): PAIN CLINIC PROCEDURES Past Anesthesia/Blood Transfusion Reactions: No Reported Reaction Past Psychological History: No Psychological Hx Reported Smoking Status: Current every day smoker Past Alcohol Use History: None Reported Past Drug Use History: None Reported - Past Family History Mother Family Medical History: Myocardial Infarction ([place]) Additional Family Medical History / Comment(s): triple bipass Father Family Medical History: No Reported History Additional Family Medical History / Comment(s): triple bypass General Exam Limitations: no limitations General appearance: alert, in no apparent distress Head exam: Present: atraumatic, normocephalic, normal inspection Eye exam: Present: normal appearance, PERRL, EOMI. Absent: scleral icterus, conjunctival injection, periorbital swelling ENT exam: Present: normal exam, mucous membranes moist Neck exam: Present: normal inspection, full ROM. Absent: tenderness, meningismus, lymphadenopathy Respiratory exam: Present: normal lung sounds bilaterally. Absent: respiratory distress, wheezes, rales, rhonchi, stridor Cardiovascular Exam: Present: regular rate, normal rhythm, normal heart sounds. Absent: systolic murmur, diastolic murmur, rubs, gallop, clicks Extremities exam: Present: full ROM (Full range of motion of the right lower extremity), tenderness (Tenderness around abscess area.), normal capillary refill (Capillary refill less than 2 seconds, DP pulse 2+ in the right lower extremity), other (Patient has an abscess about 3 cm x 4 cm noted to the right l ateral mid thigh. There is surrounding erythema about 6 cm x 7 cm.) Neurological exam: Present: alert, oriented X3, CN II-XII intact Psychiatric exam: Present: normal affect, normal mood Course Vital Signs 01/23/19 11:19 Temperature 98 F Pulse Rate 60 Respiratory 18 Rate Blood Pressure 151/96 O2 Sat by Pulse 95 Oximetry Procedures - Incision & Drainage Consent Obtained: verbal consent Indication: Abscess Site: lower extremity Size (cm): 4 Anesthetic Used: lidocaine 1% Amount (mLs): 2 I&D Cleaning Method: Chloroprep Sterile Field Used?: Yes Scalpel Used: #11 I&D Drainage Obtained: Pus, Blood Patient Tolerated Procedure: well, no complications Medical Decision Making - Medical Decision Making 53-year-old male presents to the emergency department for abscess. This has been ongoing for about 2 days. On exam patient is a 3 x 4 cm abscess with about 6 x 7 cm surrounding erythema. Possible cellulitic component associated with abscess. Patient is afebrile, feeling his normal self otherwise. Patient well- appearing. Vitals are stable. Incision and drainage was performed, success we drained purulent material. Patient has an ALLERGY to penicillins however this was when he was a child and he had shaking associated. Patient will be given Keflex as this has a low cross-reactivity rate. He will also be given Bactrim. Patient will follow up with primary care in 1-2 days. He'll return here if he has any worsening symptoms. Discussed monitoring erythema and returning if is not improving in the next 48 hours. Disposition Clinical Impression: Abscess Disposition: HOME SELF-CARE Condition: Good Instructions (If sedation given, give patient instructions): Abscess Incision and Drainage (ED), Cellulitis (ED) Additional Instructions: Please take antibiotics as directed. Apply warm compresses several times daily. Monitor redness around the area and if it is not improving in the next 24-48 hours return to the emergency department. Otherwise follow-up with primary care in 1-2 days. Prescriptions: Sulfamethox-Tmp 800-160Mg [Bactrim DS 800-160 mg] 1 tab PO Q12HR #20 tab Cephalexin [Keflex] 500 mg PO Q6H 10 Days cap Is patient prescribed a controlled substance at d/c from ED?: No Referrals: Kem Ortega MD [Primary Care Provider] - 1-2 days Time of Disposition: 11:53
== END 2019-01-23 12:11 | disposition home or self-care (01) ==
LOC: EC 10:51
DX: L02.415 Cutaneous abscess of right lower limb (principal); F17.200 Nicotine dependence, unspecified, uncomplicated; Z88.0 Allergy status to penicillin
CPT/HCPCS: 99282; 10060; J2001

== ENCOUNTER → 2019-01-31 | Outpatient (CLI) | payer BC ==
[2019-01-31 11:22] VITALS: BP 138/78; PULSE 90; RESP 18
--- NOTE | 2019-01-31 20:05 | P.PAINPG ---
Subjective Progress Note Date: 01/31/19 This is a 54 years old male with a chronic history of low back pain, is diagnosed with lumbar spondylosis with lumbar facet arthropathy, recently we've done radiofrequency ablation of the medial branch lumbar area, was done more than 4 months ago ,he reports his pain improved significantly, and activity of daily livings improved, he denies any motor or sensory deficits, he denies any fever or night sweats, and he continued to use ultram 50 mg every 8 hours, Neurontin 400 mg 3 times a day, Motrin 800 mg 3 times a day when necessary, he denies any side effect of the medication, he denies any suicidal ideation, and he report the current medication helping him to control his pain Physical Examinations : -Constitutiona : Cooperative , not in acute distress . -HEENT : nech : supple , no Lymphadenopathy , normal thyroid size . eyes : no ptosis , no icterus, no photophobia . - neurologic : Cranial nerve II to XII intact , no focal neurological deffecit . -psychatric : alert , oriented X 3 , appropriate affect , intact judgment and insight . -Lymphatic : no Lymphadenopathy . - musculoskeltal : Lumber spine moter stegnth lower extremities ,thigh and legs 5/5 Right side , 5/5 Left side Assessment and plan= chronic low back pain secondary to lumbar degenerative disc disease , lumbar spondylosis with lumbar facet arthropathy . Patient doing very well after the radiofrequency ablation of the medial branch lumbar area chronic and current use of high-risk medication (opioids) Patient denies any side effects of the current pain medication and the current treatment/medication helping the patient to do activity of daily living , Diagnoses, prognosis, treatment options, including but not limited to physical therapy, medication management, interventional therapies, and surgery, were discussed with the patient All the questions answered The narcotic consent was signed and patient agreed and understood the side effects and complications of opioid treatment. Patient signed the narcotic agreement, and was orally counseled, not to overuse, not to abuse, not to Divert , not tp sell pain medication, and to take it as prescribed only, Patient was counseled not to drive or operate heavy equipment while using narcotic medication, and advised not to use alcohol or any Illicit drugs while using the narcotis. understanding that lack of compliance with any of the above instructions, will likely to cause discharge from, the pain service, not to renew his narcotic prescriptions MAPS Reviwed and it was apropriate . Medication managements= patient will be given prescription refills for Motrin 800 mg every 8 hours dispense 90 with 1 refill, Ultram 50 mg every 8 hours dispense 90 with 1 refill I will decrease the Neurontin from 400 mg every 8 hours to 300 mg every 8 hours dispense 90 with 1 refill, and patient will follow up with the pain clinic in 2 months , Objective - Vital Signs Vital signs: Vital Signs Temp Pulse 90 01/31/19 11:18 Resp 18 01/31/19 11:18 BP 138/78 01/31/19 11:18 Pulse Ox 95 01/31/19 11:18 Intake & Output 01/31/19 01/31/19 02/01/19 06:59 18:59 06:59 Weight 88.451 kg PQRS Measure Charge Sheet Measure #130: Documentation of Current Meds in Medical Chart: Patient's medications documented in chart Measure #226: Tobacco Use: Screen & Cessation Intervention: Pt screened for tobacco use AND intervention given Measure #111: Pneumonia Vaccination: Pneumococcal vaccine NOT administered or previously given Measure #47: Advance Care Plan: Advance care planning discussed & documented, pt chose/unable to give Measure #412: Opioid Treatment Agreement: Documented signed opioid trtmnt agreemnt min once during opioid trtmnt Measure #408: Opioid Therapy Follow-up Evaluation: Patient had f/u eval minimum every 3 months during opioid therapy Measure #317: Preventitive Care & Scrn High Bld Press & F/U: Normal blood pressure, f/u not required Measure #128: Body Mass Index (BMI) Screening & Follow-up: BMI documented ABOVE normal parameters - f/u documented Measure #131: Pain Assessment & Follow-up: Pain positive & plan documented, Follow-up scheduled Measure #431: Unhealthy Alcohol Use Preventative Care & Scrn: Patient not identified as an unhealthy alcohol user PQRS Narrative: Smoking Status Current every day smoker Narcotic Agreement Date Signed 11/30/16 Blood Pressure 138/78 Pain Intensity [Lower Back] 0 Scale Used Numeric (1 - 10) Hx Alcohol Use (MH) No Home Medications: Ambulatory Orders Multivitamin [Men's Multi-Vitamin] 1 tab PO DAILY 01/08/16 Sulfamethox-Tmp 800-160Mg [Bactrim DS 800-160 mg] 1 tab PO Q12HR #20 tab 01/23/19 Gabapentin [Neurontin] 300 mg PO TID #90 cap 01/31/19 Ibuprofen 800 mg PO TID #90 tablet 01/31/19 traMADol HCL [Ultram] 50 mg PO Q8HR PRN #90 tab 01/31/19 Controlled Substance Measures - Controlled Substance Measures Is patient prescribed a controlled substance at discharge?: Yes When asked, does pt state using other controlled substances?: No If prescribed controlled substance>3 days was MAPS reviewed?: Yes If Rx opioid, was Start Talking consent form obtained?: Yes If opioid is for acute pain is fill amount 7 days or less?: No Was information provided regarding opioid addiction?: Yes
== END ==
LOC: PNWHC3 10:59
PROVIDERS: ATTEND Specialist
DX: G89.29 Other chronic pain (principal); M51.36 Other intervertebral disc degeneration, lumbar region; M47.816 Spondylosis without myelopathy or radiculopathy, lumbar region; M46.96 Unspecified inflammatory spondylopathy, lumbar region; F17.200 Nicotine dependence, unspecified, uncomplicated; Z79.899 Other long term (current) drug therapy; Z79.2 Long term (current) use of antibiotics; Z79.1 Long term (current) use of non-steroidal anti-inflammatories (NSAID); Z79.891 Long term (current) use of opiate analgesic
CPT/HCPCS: 99211

== ENCOUNTER 2019-02-01 00:37 | Emergency (ER) | payer BC ==
[2019-02-01 00:45] VITALS: TEMP 98.6
[2019-02-01] MEDS ORDERED: methylPREDNISolone SOD SUCCI 125 MG/2 ML VIAL IV STA (01:09)
[2019-02-01] MEDS ORDERED: FAMOTIDINE 20 MG/2 ML VIAL IV STA (01:09)
[2019-02-01] MEDS ORDERED: diphenhydrAMINE 50 MG/ML 1 ML VIAL IVP STA (01:09)
[2019-02-01] MEDS ORDERED: SODIUM CHLORIDE 0.9% 1,000 ML IV STA (01:09)
--- NOTE | 2019-02-01 03:22 | ED ---
General Adult HPI - General Chief complaint: Allergic Reaction Stated complaint: Allergic Reaction Time Seen by Provider: 02/01/19 00:52 Source: patient, RN notes reviewed, old records reviewed Mode of arrival: ambulatory Limitations: no limitations - History of Present Illness Initial comments: 54-year-old male patient currently on Bactrim, Keflex presents to ED for morbilliform rash all over body lasting approximately 24 hours. Patient reports that he has been taking Bactrim and Keflex for a right lower extremity lateral abscess which was drained and is healing well. Patient reports that he felt as if he had sinus congestion, took pseudoephedrine today, patient then developed a morbilliform rash all over body. Patient also reports that it is mildly itchy and feels warm. Denies any other complaints this time. Denies any chest pain shortness of breath abdominal pain nausea vomiting or diarrhea. Systemic: Pt denies fatigue, fever/chills. Pt denies weakness, night sweats, weight loss. Neuro: Pt denies headache, visual disturbances, syncope or pre-syncope. HEENT: Pt denies ocular discharge or irritation, otalgia, rhinorrhea, pharyngitis or notable lymphadenopathy. Cardiopulmonary: Pt denies chest pain, SOB, heart palpitations, dyspnea on exertion. Abdominal/GI: Pt denies abdominal pain, n/v/d. : Pt denies dysuria, burning w/ urination, frequency/urgency. Denies new onset urinary or bowel incontinence. MSK: Pt denies myalgia, loss of strength or function in extremities. Neuro: Pt denies new onset weakness, paresthesias. - Related Data Home Medications Medication Instructions Recorded Confirmed Multivitamin [Men's Multi-Vitamin] 1 tab PO DAILY 01/08/16 01/31/19 Previous Rx's Medication Instructions Recorded Sulfamethox-Tmp 800-160Mg [Bactrim 1 tab PO Q12HR #20 tab 01/23/19 DS 800-160 mg] Gabapentin [Neurontin] 300 mg PO TID #90 cap 01/31/19 Ibuprofen 800 mg PO TID #90 tablet 01/31/19 traMADol HCL [Ultram] 50 mg PO Q8HR PRN #90 tab 01/31/19 Famotidine [Pepcid] 20 mg PO BID 5 Days #10 tablet 02/01/19 diphenhydrAMINE [Benadryl] 1 - 2 tab PO Q6HR PRN #30 capsule 02/01/19 predniSONE 50 mg PO DAILY #4 tab 02/01/19 Allergies Allergy/AdvReac Type Severity Reaction Status Date / Time Penicillins Allergy SEIZURE Verified 02/01/19 00:44 Review of Systems ROS Statement: Those systems with pertinent positive or pertinent negative responses have been documented in the HPI. ROS Other: All systems not noted in ROS Statement are negative. Past Medical History Past Medical History: Musculoskeletal Disorder Additional Past Medical History / Comment(s): LUMBAR DDD-NUMBNESS & TINGLING IN LT LEG TO FEET OCCASIONALLY- USES TENS UNIT PRN History of Any Multi-Drug Resistant Organisms: None Reported Past Surgical History: No Surgical Hx Reported Additional Past Surgical History / Comment(s): PAIN CLINIC PROCEDURES Past Anesthesia/Blood Transfusion Reactions: No Reported Reaction Past Psychological History: No Psychological Hx Reported Smoking Status: Current every day smoker Past Alcohol Use History: None Reported Past Drug Use History: None Reported - Past Family History Mother Family Medical History: Myocardial Infarction (PR) Additional Family Medical History / Comment(s): triple bipass Father Family Medical History: No Reported History Additional Family Medical History / Comment(s): triple bypass General Exam - General Exam Comments Initial Comments: Constitutional: NAD, AOX3, Pt has pleasant affect. HEENT: NC/AT, trachea midline, neck supple, no lymphadenopathy. Posterior pharynx non erythematous, without exudates. External ears appear normal, without discharge. Mucous membranes moist. Eyes PERRLA, EOM intact. There is no scleral icterus. No pallor noted. Cardiopulmonary: RRR, no murmurs, rubs or gallops, no JVD noted. Lungs CTAB in anterior and posterior arndt. No peripheral edema. Abdominal exam: Abdomen soft and non-distended. Abdomen non-tender to palpation in all 4 quadrants. Bowel sounds active in LLQ. No hepatosplenomegaly. No ecchymosis Neuro: CN II-XII grossly intact. No nuchal rigidity. No raccon eyes, no iyer sign, no hemotympanum. No cervical spinal tenderness. MSK: No posterior calf tenderness bilaterally, homans sign negative bilaterally. Posterior tibialis and radial pulse +2 bilaterally. Sensation intact in upper and lower extremities. Full active ROM in upper and lower extremities, 5/5 stregnth. Derm: Morbilliform rash noted diffusely across body. No mucous membrane involv ement. Limitations: no limitations Course Vital Signs 02/01/19 00:40 Temperature 98.6 F Pulse Rate 100 Respiratory 20 Rate Blood Pressure 143/81 O2 Sat by Pulse 95 Oximetry Medical Decision Making - Medical Decision Making 54-year-old male patient currently on Bactrim, Keflex presents to ED for morbilliform rash all over body lasting approximately 24 hours. Patient reports that he has been taking Bactrim and Keflex for a right lower extremity lateral abscess which was drained and is healing well. Patient reports that he felt as if he had sinus congestion, took pseudoephedrine today, patient then developed a morbilliform rash all over body. Patient also reports that it is mildly itchy and feels warm. Denies any other complaints this time. Denies any chest pain shortness of breath abdominal pain nausea vomiting or diarrhea. Patient will signs stable, afebrile. Physical exam displayed verbal form rash diffusely across body. Patient instructed steroids, Benadryl, Pepcid minor improvement of the rash. Patient discharged with these medications. He'll follow up with primary care provider, return to ER patient worsens in any way. Return precautions discussed, patient was understanding. Case discussed with Dr. Paige. Disposition Clinical Impression: Drug rash Disposition: HOME SELF-CARE Condition: Stable Instructions (If sedation given, give patient instructions): Acute Rash (ED) Additional Instructions: Patient to adhere to previously discussed treatment plan and will take medication(s) as directed. Patient to follow up with PCP in 1-2 days. Patient to return to ED if symptoms do not improve. Medications prescribed, follow up with primary care prior tomorrow, return to ER immediately if condition worsens. Prescriptions: diphenhydrAMINE [Benadryl] 1 - 2 tab PO Q6HR PRN #30 capsule PRN Reason: Allergic Reaction Famotidine [Pepcid] 20 mg PO BID 5 Days #10 tablet predniSONE 50 mg PO DAILY #4 tab Is patient prescribed a controlled substance at d/c from ED?: No Referrals: Kem Ortega MD [Primary Care Provider] - 1-2 days
[2019-02-01 03:52] VITALS: BP 135/87; PULSE 78; RESP 16
== END 2019-02-01 03:52 | disposition home or self-care (01) ==
LOC: EC 00:37
DX: L27.0 Generalized skin eruption due to drugs and medicaments taken internally (principal); T36.8X5A Adverse effect of other systemic antibiotics, initial encounter; T36.1X5A Adverse effect of cephalosporins and other beta-lactam antibiotics, initial encounter; F17.200 Nicotine dependence, unspecified, uncomplicated; Z88.0 Allergy status to penicillin
CPT/HCPCS: 99283; 96374; 96375 ×2; 96361 ×2; J1200; J2930

== ENCOUNTER → 2019-04-11 | Outpatient (CLI) | payer BC ==
[2019-04-11 11:32] VITALS: BP 162/77; PULSE 64; RESP 18
--- NOTE | 2019-04-11 11:47 | P.PAINPG ---
Subjective Progress Note Date: 04/11/19 This is a 54 years old male with history of low back pain,he is diagnosed with lumbar spondylosis with lumbar facet arthropathy, a few months ago we've done radiofrequency ablation of the medial branch lumbar area ,he reports his pain improved significantly, and his pain is controlled between interventional pain management and pain medication and activity of daily livings improved, he denies any motor or sensory deficits, he denies any fever or night sweats, and he continued to use ultram 50 mg every 8 hours, Neurontin 300 mg 3 times a day, Motrin 800 mg 3 times a day when necessary, he denies any side effect of the medication, he denies any suicidal ideation, and he report the current medication helping him to control his pain Objective - Vital Signs Vital signs: Vital Signs Temp Pulse 64 04/11/19 11:27 Resp 18 04/11/19 11:27 BP 162/77 04/11/19 11:27 Pulse Ox 97 04/11/19 11:27 Intake & Output 04/10/19 04/11/19 04/11/19 18:59 06:59 18:59 Weight 88.451 kg - Exam Physical Examinations : -Constitutiona : Cooperative , not in acute distress . -HEENT : nech : supple , no Lymphadenopathy , normal thyroid size . eyes : no ptosis , no icterus, no photophobia . - Genitourinary : Defferred . - neurologic : Cranial nerve II to XII intact , no focal neurological deffecit . -psychatric : alert , oriented X 3 , appropriate affect , intact judgment and insight . . -Musculoskeletal Lumber spine moter stegnth lower extremities ,thigh and legs 5/5 Right side , 5/5 Left side deep tendon reflexes : normal Knee Jerk , normal ankle Jerk Assessment and Plan Plan: Assessment and plan= chronic low back pain secondary to lumbar spondylosis with lumbar facet arthropathy . chronic and current use of high-risk medication (opioids) Patient denies any side effects of the current pain medication and the current treatment/medication helping the patient to do activity of daily living , Diagnoses, prognosis, treatment options, including but not limited to physical therapy, medication management, interventional therapies, and surgery, were discussed with the patient All the questions answered The narcotic consent was signed and patient agreed and understood the side effects and complications of opioid treatment. Patient signed the narcotic agreement, and was orally counseled, not to overuse, not to abuse, not to Divert , not tp sell pain medication, and to take it as prescribed only, Patient was counseled not to drive or operate heavy equipment while using narcotic medication, and advised not to use alcohol or any Illicit drugs while using the narcotis. understanding that lack of compliance with any of the above instructions, will likely to cause discharge from, the pain service, not to renew his narcotic prescriptions MAPS Reviwed and it was apropriate . Medication managements= patient will be given prescription refills for Ultram 50 mg every 8 hours dispense 90 with 1 refill, Motrin 800 mg every 8 hours dispense 90 with one refill I will decrease Neurontin to 200 mg 3 times a day (100 mg 2 tablets every 8 hours ) , Time with Patient: Less than 30 PQRS Measure Charge Sheet Measure #130: Documentation of Current Meds in Medical Chart: Patient's medications documented in chart Measure #226: Tobacco Use: Screen & Cessation Intervention: Pt screened for tobacco use AND intervention given Measure #111: Pneumonia Vaccination: Pneumococcal vaccine administered or previously received Measure #47: Advance Care Plan: Advance care planning discussed & documented, pt chose/unable to give Measure #412: Opioid Treatment Agreement: Documented signed opioid trtmnt agreemnt min once during opioid trtmnt Measure #408: Opioid Therapy Follow-up Evaluation: Patient had f/u eval minimum every 3 months during opioid therapy Measure #317: Preventitive Care & Scrn High Bld Press & F/U: Pre-hypertensive or hypertensive BP documented, pt will f/u with PCP Measure #128: Body Mass Index (BMI) Screening & Follow-up: BMI documented ABOVE normal parameters - f/u documented Measure #131: Pain Assessment & Follow-up: Pain positive & plan documented, Foll ow-up scheduled Measure #431: Unhealthy Alcohol Use Preventative Care & Scrn: Patient not identified as an unhealthy alcohol user PQRS Narrative: Smoking Status Current every day smoker Narcotic Agreement Date Signed 11/30/16 Blood Pressure 162/77 Pain Intensity [Lower Back] 3 Scale Used Numeric (1 - 10) Hx Alcohol Use (MH) No Home Medications: Ambulatory Orders Multivitamin [Men's Multi-Vitamin] 1 tab PO DAILY 01/08/16 Sulfamethox-Tmp 800-160Mg [Bactrim DS 800-160 mg] 1 tab PO Q12HR #20 tab 01/23/19 Gabapentin [Neurontin] 300 mg PO TID #90 cap 01/31/19 Ibuprofen 800 mg PO TID #90 tablet 01/31/19 traMADol HCL [Ultram] 50 mg PO Q8HR PRN #90 tab 01/31/19 Famotidine [Pepcid] 20 mg PO BID 5 Days #10 tablet 02/01/19 diphenhydrAMINE [Benadryl] 1 - 2 tab PO Q6HR PRN #30 capsule 02/01/19 predniSONE 50 mg PO DAILY #4 tab 02/01/19 Controlled Substance Measures - Controlled Substance Measures Is patient prescribed a controlled substance at discharge?: Yes When asked, does pt state using other controlled substances?: No If prescribed controlled substance>3 days was MAPS reviewed?: Yes If Rx opioid, was Start Talking consent form obtained?: Yes If opioid is for acute pain is fill amount 7 days or less?: No Was information provided regarding opioid addiction?: Yes
== END | disposition home or self-care (01) ==
LOC: PNWHC3 11:14
PROVIDERS: ATTEND Specialist
DX: G89.29 Other chronic pain (principal); M47.816 Spondylosis without myelopathy or radiculopathy, lumbar region; M46.96 Unspecified inflammatory spondylopathy, lumbar region; F17.200 Nicotine dependence, unspecified, uncomplicated; Z98.890 Other specified postprocedural states; Z79.891 Long term (current) use of opiate analgesic; Z79.52 Long term (current) use of systemic steroids; Z79.899 Other long term (current) drug therapy
CPT/HCPCS: 99211

== ENCOUNTER → 2019-06-06 | Outpatient (CLI) | payer BC ==
[2019-06-06 11:55] VITALS: BP 159/89; PULSE 67; RESP 18
--- NOTE | 2019-06-06 12:33 | P.PAINPG ---
Subjective Progress Note Date: 06/06/19 This is a 54-year-old male known to our clinic who is previously received RFA's with 6 months pain relief, he returns for follow-up today. He states that the pain on his left side where he hit the RFA usually covers has been slowly coming back, and he is interested in a repeat RFA. He is prescribed Elk 11/25/2024 twice a day when necessary, ibuprofen 800 3 times a day when necessary, and gabapentin 200 twice a day. He denies any side effects of the medication, he states that these medications do make him more functional. Other than the return of his left low back pain, he does not have any new complaints. Objective - Vital Signs Vital signs: Vital Signs Temp Pulse 67 06/06/19 11:51 Resp 18 06/06/19 11:51 BP 159/89 06/06/19 11:51 Pulse Ox 97 06/06/19 11:51 Intake & Output 06/05/19 06/06/19 06/06/19 18:59 06:59 18:59 Weight 88.451 kg - Exam Vital Signs: Reviewed in EMR GENERAL: Well appearing, in no acute distress, PSYCH: Mood and affect is appropriate. Awake, alert, and oriented SKIN: Skin color, texture, turgor normal, no rashes or lesions HEENT: Normocephalic, atraumatic. EOM intact CV: No pedal edema RESP: Respirations are unlabored, no audible wheezing GI: Abdomen non-distended MUSCULOSKELETAL: Bilateral upper and lower extremity strength is normal and symmetric. No atrophy or tone abnormalities are noted. Lumbar spine: No pain to palpation over the lumbar spine and paraspinous muscles. Positive for pain with facet loading and back extension/rotation. Extremities: Peripheral joint ROM is full and pain free without obvious instability or laxity in all four extremities. No edema or skin discolorations noted. Gait: Gait is anantalgic NEUR: No loss of sensation is noted. Cranial nerves are grossly intact. Assessment and Plan Assessment: Assessment: 1. Lumbar spondylosis 2. Chronic opiate use in form of tramadol Plan: 1. Explanation: Opioid and psychological risk scores were reviewed. Diagnoses, prognoses, and multiple treatment options including but not limited to physical therapy, interventional therapies, adjuvant medical therapies, narcotic medication therapies, and surgery were discussed with the patient and all questions were answered to the patient's satisfaction. 2. Opioid agreement: In place 3. Counseling: Patient should continue to be active 4. Procedures: Sided lumbar RFA 5. Consultations: None 6. Investigations: I reviewed 7. Medications: His Elk, ibuprofen, gabapentin refilled. At the next refill would consider obtaining a UDS as it will be one year since his last UDS. 8. Disposition: For his lumbar RFA, and a weak follow-up for med refill. , PQRS Measure Charge Sheet Measure #226: Tobacco Use: Screen & Cessation Intervention: Pt screened for tobacco use AND intervention given Measure #111: Pneumonia Vaccination: Pneumococcal vaccine administered or previously received Measure #47: Advance Care Plan: Advance care planning discussed & documented, pt chose/unable to give Measure #412: Opioid Treatment Agreement: Documented signed opioid trtmnt agreemnt min once during opioid trtmnt Measure #408: Opioid Therapy Follow-up Evaluation: Patient had f/u eval minimum every 3 months during opioid therapy Measure #131: Pain Assessment & Follow-up: Pain positive & plan documented, Follow-up scheduled Measure #431: Unhealthy Alcohol Use Preventative Care & Scrn: Patient not identified as an unhealthy alcohol user PQRS Narrative: Smoking Status Current every day smoker Narcotic Agreement Date Signed 11/30/16 Blood Pressure 159/89 Pain Intensity [Bilateral 8 Lower Back] Scale Used Numeric (1 - 10) Hx Alcohol Use (MH) No Home Medications: Ambulatory Orders Multivitamin [Men's Multi-Vitamin] 1 tab PO DAILY 01/08/16 diphenhydrAMINE [Benadryl] 1 - 2 tab PO Q6HR PRN #30 capsule 02/01/19 Gabapentin [Neurontin] 200 mg PO TID #90 cap 04/11/19 Ibuprofen 800 mg PO TID #90 tablet 04/11/19 traMADol HCL [Ultram] 50 mg PO Q8HR PRN #90 tab 04/11/19 Controlled Substance Measures - Controlled Substance Measures Is patient prescribed a controlled substance at discharge?: Yes When asked, does pt state using other controlled substances?: No If prescribed controlled substance>3 days was MAPS reviewed?: Yes If Rx opioid, was Start Talking consent form obtained?: Yes
== END | disposition home or self-care (01) ==
LOC: PNWHC3 11:33
PROVIDERS: ATTEND Student in an Organized Health Care Education/Training Program
DX: M47.816 Spondylosis without myelopathy or radiculopathy, lumbar region (principal); F17.200 Nicotine dependence, unspecified, uncomplicated; Z79.1 Long term (current) use of non-steroidal anti-inflammatories (NSAID); Z79.891 Long term (current) use of opiate analgesic; Z79.899 Other long term (current) drug therapy; Z98.890 Other specified postprocedural states
CPT/HCPCS: 99211

== ENCOUNTER 2019-06-15 07:41 | Day surgery (SDC) | payer BC ==
[2019-06-15 08:26] VITALS: RESP 18; TEMP 97.8
[2019-06-15] MEDS ORDERED: LACTATED RINGERS 1,000 ML IV ONE (08:27)
[2019-06-15] MEDS ORDERED: LIDOCAINE 1% 20 ML VIAL (10MG/ML) FOR IV START INTRADERMA ONE (08:27)
--- NOTE | 2019-06-15 09:21 | P.PCN ---
Date of Procedure: 06/15/19 Procedure(s) Performed: PREOPERATIVE DIAGNOSIS: 1-Lumbar Spondylosis with Facet Arthropathy without myelopathy. POSTOPERATIVE DIAGNOSIS: 1- Lumbar Spondylosis with Facet Arthropathy without myelopathy. PROCEDURES : Left Radiofrequency thermocoagulation, L3, L4, and L5 medial b ranch, with fluoroscopic guidance (fluoroscopy images available at Radiology Department) ( to denervate the left side facet joints at L4- 5 and L5-S1 levels ) ANESTHESIA: Moderate sedation with versed 2 mg, and fentaneyl 100 mcg and local infiltration with lidocaine 1% 3 ml EBL: Minimal PROCEDURE INDICATION: The patient with low back pain secondary to lumbar facet arthropathy who had more than 50% relief of her pain with previous diagnostic lumbar medial branch block with bupivacaine. we have done the radiofrequency ablation of the medial branch 6 months ago , the patient had good pain relief for 6 months, and he is here today to have a repeat radiofrequency of the medial branch lumbar area . PROCEDURE DESCRIPTION / TECHNIQUE: The patient was seen and identified in the preoperative area. Risks, benefits, complications, including but not limited to risk of infection ,bleeding , allergic reactions to the medications and no complete pain releife , and alternatives were discussed with the patient, the patient agreed to proceed with the procedure and signed the consent. IV was started. Vital signs remained stable throughout the procedure. Patient was taken to the OR and time out was completed. The patient was placed in the prone position on the procedure table. The lumber area was prepped and draped in the usual sterile fashion. . Vital signs were closely monitored during the procedure .IV sedation was used during the procedure to decrease patients anxiety. Using AP and then oblique fluoroscopy, the eye of the Otilio dog corresponding to the connection between the superior and transverse articular processes of left L3, L4, and L5 were identified, marked, and localized with 1% lidocaine. Subsequently, a [id number] radiofrequency cannula with a 10-mm active tip was advanced guided by fluoroscopy to each of the eyes of the Otilio dog at left L3, L4, and L5. Each site then underwent sensory testing at 50 Hz and 0 to 1 volt and motor testing at 2.5 Hz and 0 to 3 volt with local stimulation, but no radicular symptoms down the legs. Thereafter the left L3, L4, and L5 sites underwent radiofrequency thermocoagulation at 80 degrees celsius for 90 seconds after injecting 0.5 ml of PF lidocaine 1%. then After the thermocoagulation done , 1 ml of the block solution containing Depo-Medrol 40 mg and 3 ml of Ropivacaine 0.5% was injected at the left L3 , L4 , and L5, levels after negative aspiration of CSF and blood and with no paresthesias. Cannulas were retracted while injecting lidocaine 1% until the needle is out. At the end of the procedure, the skin was cleansed and bandages were applied. COMPLICATIONS: No acute complications. DISPOSITION / PLANS: The patient was placed in a supine position and transferred to the recovery area in a stable condition for observation and was discharged from the recovery room after meeting discharge criteria. Home discharge instructions given to the patient by the staff. The patient was reexamined prior to discharge. The patient will schedule a follow up in the clinic in 2-4 weeks.
[2019-06-15] MEDS ORDERED: IV FLUID CONTINUATION 850 ML IV ONE (09:25)
[2019-06-15 09:37] VITALS: BP 136/85; PULSE 65
--- NOTE | 2019-06-15 12:29 | FL ---
EXAMINATION TYPE: FL guided pain mgmt statistic DATE OF EXAM: 06/15/2019 FLUOROSCOPY Fluoroscopy time of 9 seconds was used during left-sided lumbar radiofrequency ablation. 4 image/s d ocument/s the procedure.
== END 2019-06-15 09:55 | disposition home or self-care (01) ==
LOC: ORPAIN 07:41
PROVIDERS: ATTEND Specialist
DX: M47.816 Spondylosis without myelopathy or radiculopathy, lumbar region (principal); Z88.0 Allergy status to penicillin
CPT/HCPCS: 64635; 64636; J2250; J1030; J3010; 99152

== ENCOUNTER → 2019-08-01 | Outpatient (CLI) | payer BC ==
[2019-08-01 11:57] VITALS: BP 157/97; PULSE 70; RESP 18
--- NOTE | 2019-08-02 20:15 | P.PAINPG ---
Subjective Progress Note Date: 08/01/19 This is a follow-up visit for this 54 years old male with a chronic history of severe low back pain, is diagnosed with lumbar spondylosis with lumbar facet arthropathy, his pain will manage between interventional pain management and pain medication, 2 months ago we have done RFA on the left medial branch lumbar area, he gets excellent pain relief, and he continue to use Ultram 50 mg every 8 hours when necessary and Neurontin once a day, and Motrin 800 mg 3 times a day, he reported that he is not getting any relief from the Neurontin he is questioning if he can discontinue the Neurontin, he denies any side effect of the medication and he reports a current medications Ultram and Motrin, provided him with good pain relief without any side effect, and in prone activity of daily living Objective - Vital Signs Vital signs: Vital Signs Temp Pulse 70 08/01/19 11:52 Resp 18 08/01/19 11:52 BP 157/97 08/01/19 11:52 Pulse Ox 96 08/01/19 11:52 - Exam Physical Examinations : -Constitutiona : Cooperative , not in acute distress . -HEENT : nech : supple , no Lymphadenopathy , normal thyroid size . : eyes : no ptosis , no icterus, no photophobia . - neurologic : Cranial nerve II to XII intact , no focal neurological deffecit . -psychatric : alert , oriented X 3 , appropriate affect , intact judgment and insight . -Lymphatic : no Lymphadenopathy . - musculoskeltal : Lumber spine moter stegnth lower extremities ,thigh and legs 5/5 Right side , 5/5 Left side Assessment and Plan Plan: Assessment and plan= chronic low back pain secondary to lumbar degenerative disc disease , lumbar spondylosis with lumbar facet arthropathy . Patient had a good result with the RFA of the medial branch lumbar area chronic and current use of high-risk medication (opioids) Patient denies any side effects of the current pain medication and the current treatment/medication helping the patient to do activity of daily living , Diagnoses, prognosis, treatment options, including but not limited to physical therapy, medication management, interventional therapies, and surgery, were discussed with the patient All the questions answered The narcotic consent was signed and patient agreed and understood the side effects and complications of opioid treatment. Patient signed the narcotic agreement, and was orally counseled, not to overuse, not to abuse, not to Divert , not tp sell pain medication, and to take it as prescribed only, Patient was counseled not to drive or operate heavy equipment while using narcotic medication, and advised not to use alcohol or any Illicit drugs while using the narcotis. understanding that lack of compliance with any of the above instructions, will likely to cause discharge from, the pain service, not to renew his narcotic prescriptions MAPS Reviwed and it was apropriate . Medication managements= patient will be given prescription refills for Ultram 50 mg every 8 hours dispense 90 with 1 refill Motrin 800 mg 3 times a day dispense 90 with 1 refill And discontinue Neurontin , Time with Patient: Less than 30 PQRS Measure Charge Sheet Measure #130: Documentation of Current Meds in Medical Chart: Patient's medications documented in chart Measure #226: Tobacco Use: Screen & Cessation Intervention: Pt not a tobacco user Measure #111: Pneumonia Vaccination: Pneumococcal vaccine administered or previously received Measure #47: Advance Care Plan: Advance care planning discussed & documented, pt chose/unable to give Measure #412: Opioid Treatment Agreement: Documented signed opioid trtmnt agreemnt min once during opioid trtmnt Measure #408: Opioid Therapy Follow-up Evaluation: Patient had f/u eval minimum every 3 months during opioid therapy Measure #317: Preventitive Care & Scrn High Bld Press & F/U: Pre-hypertensive or hypertensive BP documented, pt will f/u with PCP Measure #128: Body Mass Index (BMI) Screening & Follow-up: BMI documented ABOVE normal parameters - f/u documented Measure #131: Pain Assessment & Follow-up: Pain positive & plan documented, Follow-up scheduled Measure #431: Unhealthy Alcohol Use Preventative Care & Scrn: Patient not identified as an unhealthy alcohol user PQRS Narrative: Smoking Status Current every day smoker Narcotic Agreement Date Signed 11/30/16 Blood Pressure 157/97 Pain Intensity [Lower Back] 2 Scale Used Numeric (1 - 10) Hx Alcohol Use (MH) No Home Medications: Ambulatory Orders Multivitamin [Men's Multi-Vitamin] 1 tab PO DAILY 01/08/16 Ibuprofen 800 mg PO TID #90 tablet 04/11/19 traMADol HCL [Ultram] 50 mg PO Q8HR PRN #90 tab 04/11/19 Controlled Substance Measures - Controlled Substance Measures Is patient prescribed a controlled substance at discharge?: Yes When asked, does pt state using other controlled substances?: No If prescribed controlled substance>3 days was MAPS reviewed?: Yes If Rx opioid, was Start Talking consent form obtained?: Yes If opioid is for acute pain is fill amount 7 days or less?: No Was information provided regarding opioid addiction?: Yes
== END | disposition home or self-care (01) ==
LOC: PNWHC3 11:40
PROVIDERS: ATTEND Specialist
DX: G89.29 Other chronic pain (principal); M51.36 Other intervertebral disc degeneration, lumbar region; M47.816 Spondylosis without myelopathy or radiculopathy, lumbar region; M46.96 Unspecified inflammatory spondylopathy, lumbar region; F17.200 Nicotine dependence, unspecified, uncomplicated; Z98.890 Other specified postprocedural states; Z79.1 Long term (current) use of non-steroidal anti-inflammatories (NSAID); Z79.899 Other long term (current) drug therapy
CPT/HCPCS: 99211

== ENCOUNTER → 2020-02-15 | Outpatient (CLI) | payer BC ==
[~2020-02-15] MED LIST changes: -IV FLUID CONTINUATION 1,000 ML IV ONE; -LACTATED RINGERS 1,000 ML IV ONE; -LIDOCAINE 1% 20 ML VIAL (10MG/ML) FOR IV START INTRADERMA ONE; +REGADENOSON 0.4 MG/5 ML SYRINGE IV ONE
--- NOTE | 2020-02-15 11:00 | ECHOF ---
Referral Reason:R94.31 Abnormal Ekg MEASUREMENTS -------- HEIGHT: 182.9 cm WEIGHT: 83.9 kg BP: 131/81 RVIDd: 2.8 cm (< 3.3) IVSd: 1.3 cm (0.6 - 1.1) LVIDd: 4.5 cm (3.9 - 5.3) LVPWd: 1.3 cm (0.6 - 1.1) IVSs: 1.6 cm LVIDs: 3.0 cm LVPWs: 1.8 cm LA Diam: 3.3 cm (2.7 - 3.8) Ao Diam: 2.9 cm (2.0 - 3.7) AV Cusp: 2.2 cm (1.5 - 2.6) MV EXCURSION: 23.384 mm (> 18.000) MV EF SLOPE: 101 mm/s (70 - 150) EPSS: 0.6 cm MV E Christ: 0.61 m/s MV DecT: 300 ms MV A Christ: 0.73 m/s MV E/A Ratio: 0.84 RAP: 5.00 mmHg RVSP: 26.04 mmHg TAPSE: 22.86 mm FINDINGS -------- Sinus rhythm. This was a technically good study. The left ventricular size is normal. There is mild concentric left ventricular hypertrophy. Overa ll left ventricular systolic function is normal with, an EF between 60 - 65 %. The right ventricle is normal in size. The left atrium is normal in size. The right atrium is normal in size. Interatrial and interventricular septum intact. The aortic valve is trileaflet and appears structurally normal. There is trace mitral regurgitation. Mild tricuspid regurgitation present. Right ventricular systolic pressure is normal at < 35 mmHg. Trace/mild (physiologic) pulmonic regurgitation. The aortic root size is normal. Normal inferior vena cava with normal inspiratory collapse consistent with estimated right atrial pre ssure of 5 mmHg. There is no pericardial effusion. CONCLUSIONS -------- 1. Sinus rhythm. 2. This was a technically good study. 3. The left ventricular size is normal. 4. There is mild concentric left ventricular hypertrophy. 5. Overall left ventricular systolic function is normal with, an EF between 60 - 65 %. 6. The aortic valve is trileaflet and appears structurally normal. 7. There is trace mitral regurgitation. 8. Mild tricuspid regurgitation present. 9. Right ventricular systolic pressure is normal at < 35 mmHg. 10. Trace/mild (physiologic) pulmonic regurgitation. 11. The aortic root size is normal. 12. There is no pericardial effusion. HEATER TENDER: Antoinette Niño RDCS
--- NOTE | 2020-02-15 11:56 | NM ---
"EXAMINATION TYPE: NM stress lexiscan cardiolite DATE OF EXAM: 02/15/2020 COMPARISON: NONE HISTORY: Abnormal EKG. History of tobacco use and family history of coronary artery disease TECHNIQUE: After the intravenous administration of 9.5 mCi Tc 99m Sestamibi - Cardiolite resting SPE CT images acquired 45 minutes post injection. The patient received 0.4mg Lexiscan, 24.3 mCi Tc 99m Sestamibi - Stress images obtained [address] injection FINDINGS: Review of stress and rest SPECT images demonstrates diminished uptake in the apex on stress versus re st images particularly well seen on horizontal long axis images less well seen on other views. Gated analysis shows normal wall motion with an estimated left ventricular ejection fraction of 63 %. IMPRESSION: Cannot exclude acute ischemia involving the left apex. Correlate clinically. Consider dir ect catheter angiogram based on A Yellow level critical message alert has been initiated for Kem Ortega MD via the [employer] 36 0 | Critical Results System on 02/15/2020 11:53 AM. This message alert has been sent to Kem Ortega MD via the preferences provided by the clinician for the receipt of Radiology Critical Findings. [facility] [id number]."
--- NOTE | 2020-02-15 12:17 | P.STRESS ---
- Stress Test Note Stress Test Results/Findings: Exam Performed: NM stress lexiscan cardiolite Exam Date: 02/15/20 Reason for Exam: ABNORMAL EKG Height: 5 ft 10 in Weight: 185 kg Protocol: LEXISCAN Stage: NA Duration of Exercise: NA Resting Heart Rate: 60 Resting Blood Pressure: 142/85 Maximum Achieved Heart Rate: 75 Maximum Achieved Blood Pressure: 160/77 85% PMHR: NA 100% PMHR: NA METS: NA Technologist Comment: Stress Test Results/Findings: This is a 55-year-old gentleman with history of smoking and family history of ischemic heart disease being evaluated because of abnormal EKG. Stress data: Baseline EKG showed sinus rhythm with normal AL interval and QRS duration. Blood pressure at rest is 140/85 with pulse rate of 60. A standard dose of Lexiscan was infused. EKGs taken during and after the infusion did not reveal any significant changes from the baseline. Final impression: 1. Negative legs scan stress test #2. Report on the nuclear images to be given by the radiologist
--- NOTE | 2020-02-16 16:07 | EST ---
Stress Test Results/Findings: Exam Performed: NM stress lexiscan cardiolite Exam Date: 02/15/20 Reason for Exam: ABNORMAL EKG Height: 5 ft 10 in Weight: 185 kg Protocol: LEXISCAN Stage: NA Duration of Exercise: NA Resting Heart Rate: 60 Resting Blood Pressure: 142/85 Maximum Achieved Heart Rate: 75 Maximum Achieved Blood Pressure: 160/77 85% PMHR: NA 100% PMHR: NA METS: NA Technologist Comment: Stress Test Results/Findings: This is a 55-year-old gentleman with history of smoking and family history of ischemic heart disease being evaluated because of abnormal EKG. Stress data: Baseline EKG showed sinus rhythm with normal [place] interval and QRS duration. Blood pressure at rest is 140/85 with pulse rate of 60. A standard dose of Lexiscan was infused. EKGs taken during and after the infusion did not reveal any significant changes from the baseline. Final impression: 1. Negative Lexiscan stress test #2. Report on the nuclear images to be given by the radiologist OSMAR
== END | disposition home or self-care (01) ==
LOC: RADECHMAIN 08:19
PROVIDERS: ATTEND Family Medicine
DX: R94.31 Abnormal electrocardiogram [ECG] [EKG] (principal); I07.1 Rheumatic tricuspid insufficiency; I37.1 Nonrheumatic pulmonary valve insufficiency
CPT/HCPCS: 93017; 93306; 78452; A9500

== ENCOUNTER → 2020-02-27 | Outpatient (CLI) | payer BC ==
[2020-02-27 12:12] LABS: HCT 44.1 % (39.0-53.0); HGB 14.7 gm/dL (13.0-17.5); MCHC 33.4 g/dL (31.0-37.0); Mean Platelet Volume 7.1; Platelet Count 277 k/uL (150-450); RBC 4.59 m/uL (4.30-5.90); WBC 11.2 k/uL (3.8-10.6)
[2020-02-27 12:19] LABS: African American GFR (CKD) >90 (>60 ml/min/1.73 sqM); Anion Gap 5 mmol/L; Blood Urea Nitrogen 13 mg/dL (9-20); Carbon Dioxide 26 mmol/L (22-30); Chloride 104 mmol/L (98-107); Non-African American GFR(CKD) >90 (>60 ml/min/1.73 sqM); Sodium 135 mmol/L (137-145)
== END | disposition home or self-care (01) ==
LOC: LABPAT 11:20
PROVIDERS: ATTEND Internal Medicine Interventional Cardiology
DX: Z01.818 Encounter for other preprocedural examination (principal); R06.02 Shortness of breath
CPT/HCPCS: 36415; 80051; 82565; 84520; 85027

== ENCOUNTER 2020-03-29 07:49 | Day surgery (SDC) | payer BC ==
[2020-03-26 15:15] VITALS: BMI 25.0
[~2020-03-29 07:49] MED LIST changes: +LACTATED RINGERS 1,000 ML IV SCH; +LIDOCAINE 1% (10MG/ML) FOR IV START INTRADERMA PRN; -REGADENOSON 0.4 MG/5 ML SYRINGE IV ONE
[2020-03-29 08:09] VITALS: RESP 16; TEMP 97.7
[2020-03-29] MEDS ORDERED: PROPOFOL 10 MG/ML 20 ML VIAL IV ONE (08:49)
--- NOTE | 2020-03-29 08:51 | P.GSHP ---
History of Present Illness H&P Date: 03/29/20 Chief Complaint: Screening colonoscopy This a 55-year-old male who presents today for screening colonoscopy. Patient denies any significant GI complaints. Past Medical History Past Medical History: Musculoskeletal Disorder Additional Past Medical History / Comment(s): LUMBAR DDD-NUMBNESS & TINGLING IN LT LEG TO FEET OCCASIONALLY- USES TENS UNIT PRN, HAS HEART BLOCK PER PT AFTER HEART CATH 2 WEEKS AGO History of Any Multi-Drug Resistant Organisms: None Reported Past Surgical History: Heart Catheterization Additional Past Surgical History / Comment(s): PAIN CLINIC PROCEDURES, Past Anesthesia/Blood Transfusion Reactions: No Reported Reaction Smoking Status: Current every day smoker - Past Family History Mother Family Medical History: Myocardial Infarction ([place]) Additional Family Medical History / Comment(s): triple bipass Father Family Medical History: No Reported History Additional Family Medical History / Comment(s): triple bypass Medications and Allergies Home Medications Medication Instructions Recorded Confirmed Type Aspirin [Adult Low Dose Aspirin EC] 81 mg PO DAILY 03/26/20 03/29/20 History Atorvastatin [Lipitor] 40 mg PO HS 03/26/20 03/29/20 History Metoprolol Tartrate [Lopressor] 12.5 mg PO BID 03/26/20 03/29/20 History Allergies Allergy/AdvReac Type Severity Reaction Status Date / Time Penicillins Allergy SEIZURE Verified 03/29/20 08:03 Surgical - Exam Vital Signs Temp Pulse Resp BP Pulse Ox 97.7 F 58 L 16 145/79 99 03/29/20 08:08 03/29/20 08:08 03/29/20 08:08 03/29/20 08:08 03/29/20 08:08 - General well developed, well nourished, no distress - Eyes PERRL - ENT normal pinna - Neck no masses - Respiratory normal expansion - Cardiovascular Rhythm: regular - Abdomen Abdomen: soft, non tender Assessment and Plan Assessment: We'll perform screening colonoscopy.
--- NOTE | 2020-03-29 09:01 | P.OP ---
Date of Procedure: 03/29/20 Preoperative Diagnosis: Screening colonoscopy Postoperative Diagnosis: Diverticulosis Procedure(s) Performed: Colonoscopy Anesthesia: MAC Surgeon: Wilder Gallagher Pathology: none sent Condition: stable Description of Procedure: The patient's placed on the endoscopy table in the lateral position. He received IV sedation. Digital rectal exam was performed which revealed no abnormalities. The flexible colonoscope was then placed patient anus and passed throughout the entire colon. The ileocecal valve was visualized. The cecum, ascending and transverse colon appeared normal. In the descending sigmoid colon there is mild diverticular changes. The scope was then brought back the rectum and this appeared normal. Scope was withdrawn for patient.
[2020-03-29 09:30] VITALS: BP 129/76; PULSE 63
== END 2020-03-29 09:53 | disposition home or self-care (01) ==
LOC: ORWHC2ENDO 07:49
PROVIDERS: ATTEND Surgery
DX: Z12.11 Encounter for screening for malignant neoplasm of colon (principal); K57.30 Diverticulosis of large intestine without perforation or abscess without bleeding; I10 Essential (primary) hypertension; E78.5 Hyperlipidemia, unspecified; F17.210 Nicotine dependence, cigarettes, uncomplicated; M51.36 Other intervertebral disc degeneration, lumbar region; Z88.0 Allergy status to penicillin; Z79.82 Long term (current) use of aspirin; Z79.899 Other long term (current) drug therapy; Z98.890 Other specified postprocedural states; Z82.49 Family history of ischemic heart disease and other diseases of the circulatory system
CPT/HCPCS: J2704; G0121

== ENCOUNTER → 2020-06-06 | Outpatient (CLI) | payer BC | END | disposition home or self-care (01) | LOC: LABWHC1 09:08 | PROVIDERS: ATTEND Surgery | DX: U07.1 COVID-19 (principal) | CPT/HCPCS: U0003; C9803 ==

== ENCOUNTER 2020-06-11 07:15 | Day surgery (SDC) | payer BC ==
[2020-06-07 13:32] VITALS: BMI 23.7
[~2020-06-11 07:15] MED LIST changes: +HEPARIN SODIUM,PORCINE 5,000 UNIT/ML 1 ML VIAL SQ ONE; +HYDROmorphone 0.5 MG/0.5 ML SYRINGE IVP PRN; -LIDOCAINE 1% (10MG/ML) FOR IV START INTRADERMA PRN; +ONDANSETRON 4 MG/2 ML VIAL IVP ONE; +fentaNYL (PF) 50 MCG/ML 2 ML AMP IV PRN
[2020-06-11] MEDS ORDERED: ONDANSETRON 4 MG/2 ML VIAL ONE (08:05)
[2020-06-11] MEDS ORDERED: MIDAZOLAM 2 MG/2 ML VIAL IVP ONE (08:11)
[2020-06-11 08:21] LABS: Basophils # (A) 0.1 k/uL (0-0.2); Basophils % (A) 1 %; Eosinophils # (A) 0.3 k/uL (0-0.7); Eosinophils % (A) 4 %; HCT 46.1 % (39.0-53.0); HGB 15.6 gm/dL (13.0-17.5); Lymphocytes % (A) 13 %; MCH 33.2 pg (25.0-35.0); MCHC 33.8 g/dL (31.0-37.0); Mean Platelet Volume 6.5; Monocytes # (A) 0.3 k/uL (0-1.0); Monocytes % (A) 4 %; Neutrophils # (A) 5.7 k/uL (1.3-7.7); Neutrophils % (A) 76 %; Platelet Count 222 k/uL (150-450); RDW 13.2 % (11.5-15.5); WBC 7.5 k/uL (3.8-10.6)
[2020-06-11] MEDS ORDERED: DEXAMETHASONE SOD PHOSPHATE 4 MG/ML 1 ML VIAL IVP ONE (08:27)
[2020-06-11] MEDS ORDERED: ONDANSETRON 4 MG/2 ML VIAL IVP ONE (08:27)
[2020-06-11] MEDS ORDERED: LIDOCAINE 1% INJ 10MG/ML (20 ML MDV) ONE (08:36)
[2020-06-11] MEDS ORDERED: diphenhydrAMINE 50 MG/ML 1 ML VIAL ONE (08:36)
[2020-06-11] MEDS ORDERED: ROCURONIUM 10 MG/ML (10 ML VIAL) IV ONE (08:36)
[2020-06-11] MEDS ORDERED: GLYCOPYRROLATE 0.2 MG/ML 2 ML VIAL ONE (08:36)
[2020-06-11] MEDS ORDERED: MIDAZOLAM 2 MG/2 ML VIAL ONE (08:36)
[2020-06-11] MEDS ORDERED: DEXAMETHASONE SOD PHOSPHATE 4 MG/ML 1 ML VIAL ONE (08:36)
[2020-06-11] MEDS ORDERED: SUCCINYLCHOLINE CHLORIDE 100 MG/5 ML SYR IV ONE (08:36)
[2020-06-11] MEDS ORDERED: fentaNYL (PF) 50 MCG/ML 2 ML AMP ONE (08:36)
[2020-06-11] MEDS ORDERED: KETOROLAC 15 MG/ML 1 ML VIAL ONE (08:36)
[2020-06-11] MEDS ORDERED: PROPOFOL 10 MG/ML 20 ML VIAL IV ONE (08:36)
[2020-06-11] MEDS ORDERED: ROPIVACAINE 5 MG/ML 30 ML VIAL ONE (08:36)
[2020-06-11] MEDS ORDERED: NEOSTIGMINE 1 MG/ML 10 ML VIAL ONE (08:36)
[2020-06-11] MEDS ORDERED: SODIUM CHLORIDE 0.9% 50 ML with CLINDAMYCIN 600 MG IV ONE ×2 (08:50)
[2020-06-11] MEDS ORDERED: LIDOCAINE 1%-EPI 1:100,000 20 ML VIAL SQ ONE ×2 (09:05→09:38)
[2020-06-11] MEDS ORDERED: LACTATED RINGERS 1,000 ML IV ONE (09:44)
--- NOTE | 2020-06-11 09:44 | P.OP ---
Date of Procedure: 06/11/20 Preoperative Diagnosis: Right inguinal hernia Postoperative Diagnosis: Right inguinal hernia Procedure(s) Performed: Robotic right inguinal hernia repair with mesh Anesthesia: SHERYL Surgeon: Samuel Miller Pathology: none sent Condition: stable Disposition: same day Indications for Procedure: 55-year-old male presents with complaints of right groin pain. On exam he was noted to have a right inguinal hernia. Secondary to this, plan is for right inguinal hernia repair. Patient was excellent the risks, benefits and alternatives to the procedure and did provide consent prior to attending the operating suite. Operative Findings: Right inguinal indirect hernia Description of Procedure: The patient was brought into the operative suite and placed in supine position. Gen. endotracheal anesthesia was induced. Arms were then tucked incised bilater ally and all pressure points were padded. SCDs were also placed in bilateral lower extremities and were working throughout the entire case. Preoperative antibiotics were given prior to the incision. A super umbilical incision was made approximately 20 cm superior to the pubic symphysis. The abdomen was then entered under direct visualization. At this point, pneumoperitoneum was achieved. 2 additional incisions were made approximately 11 7 m lateral to the super umbilical incision and a millimeters trochars were placed. The patient was then placed in Trendelenburg position on the hernia site was clearly visualized on the right side. This was noted as an indirect inguinal hernia. The robot was then docked appropriately. Incision was then made just lateral to the medial umbilical ligament on the right side with the monopolar scissors and the peritoneal flap was created. This was taken down towards Heath's ligament. The flap was then extended laterally. Attention was then turned to the indirect inguinal hernia. The sac was then freed from the cord while preserving the cord structures. At this point, the indirect hernia was reduced. Once the entire space was appropriately dissected out, we brought the laparoscopic parietex progrip mesh and unrolled over the hernia site. Once appropriately in place, the peritoneal flap was closed using a running 20V lock suture. Once this was completed, we removed all robotic instrument and undocked the robot. The super umbilical fascial incision was closed with a 0 Vicryl suture using the Rosendo Colindres device. This was done under laparoscopic guidance. All skin incisions were then closed with 4-0 Vicryl suture. The patient was awakened and taken to recovery unit in stable condition.
[2020-06-11] MEDS ORDERED: MEPERIDINE 50 MG/ML SYRINGE IVP ONE ×2 (09:51→09:58)
[2020-06-11] MEDS ORDERED: diphenhydrAMINE 50 MG/ML 1 ML VIAL IVP ONE (10:01)
[2020-06-11 10:08] VITALS: TEMP 97.8
[2020-06-11 11:04] VITALS: RESP 16
[2020-06-11] MEDS ORDERED: HYDROcodone/APAP 5-325MG 1 EACH TAB ONE (11:17)
--- NOTE | 2020-06-11 11:17 | P.ANPRN ---
Procedure Note - Anesthesia - Nerve Block Performed Right Transversus Abdominis Single Time Out Performed: Yes Date of Procedure: 06/11/20 Procedure Start Time: 08:10 Procedure Stop Time: 08:16 Location of Patient: PreOp Indication: Acute Post-Operative Pain, Requested by Surgeon Sedation Type: Sedate with meaningful contact maintained Preparation: Sterile Prep Position: Supine Needle Types: Pajunk Needle Gauge: 21 Ultrasound used to visualize needle placement: Yes Ultrasound used to observe medication spread: Yes Blood Aspirated: No Pain Paresthesia on Injection Noted: No Resistance on Injection: Normal Image Stored and Saved: Yes Events: Uneventful and Well Tolerated (ropi .5% 20 cc plus dexamethasone 4mg)
[2020-06-11] MEDS ORDERED: HYDROcodone/APAP 5-325MG 1 EACH TAB PO ONE (11:18)
[2020-06-11 11:24] VITALS: BP 166/94; PULSE 70
== END 2020-06-11 11:55 | disposition home or self-care (01) ==
LOC: OR 07:15
PROVIDERS: ATTEND Surgery
DX: K40.90 Unilateral inguinal hernia, without obstruction or gangrene, not specified as recurrent (principal); I25.10 Atherosclerotic heart disease of native coronary artery without angina pectoris; I10 Essential (primary) hypertension; E78.5 Hyperlipidemia, unspecified; F17.210 Nicotine dependence, cigarettes, uncomplicated; Z88.0 Allergy status to penicillin; Z79.82 Long term (current) use of aspirin; Z79.899 Other long term (current) drug therapy; Z82.49 Family history of ischemic heart disease and other diseases of the circulatory system
CPT/HCPCS: 64488; 86900; 86901; 85025; 86850; 49650; C1781; J2250; J1200; J1644; J1100; J2710; J2175; J2405; J2001; J3010; J2795; J1885; J0330; J2704; J1170

== ENCOUNTER 2022-07-08 12:42 | Emergency (ER) | payer BC ==
[2022-07-08 13:35] VITALS: RESP 18
--- NOTE | 2022-07-08 14:38 | XR ---
EXAMINATION TYPE: XR chest 2V DATE OF EXAM: 07/08/2022 COMPARISON: Chest x-ray May 23, 2018 HISTORY: Chest pain. TECHNIQUE: Frontal and lateral views of the chest are obtained. FINDINGS: There is no focal air space opacity, pleural effusion, or pneumothorax seen. The cardiac silhouette size is within normal limits on current study. The osseous structures are intact. IMPRESSION: No acute process.
--- NOTE | 2022-07-08 14:49 | ED ---
General Adult HPI - General Chief complaint: Recheck/Abnormal Lab/Rx Stated complaint: rib pain - post fall weeks ago Time Seen by Provider: 07/08/22 14:23 Source: patient, RN notes reviewed Mode of arrival: ambulatory Limitations: no limitations - History of Present Illness Initial comments: This is a 57-year-old male who presents to the emergency department for left- sided rib pain. Patient states that approximately 3 weeks ago, he fell, and hit the left side of his rib cage on his dresser, and has since had pain to this area. His concern is that the pain has started to progress despite taking naproxen, muscle relaxants, applying ice, and topical anesthetics. States that he is unable to work due to this pain. He was initially evaluated at [facility] when the injury occurred, and was told that he had a "bent rib". He followed up with his primary care provider as instructed, and states that his pain is now radiating into the left lower back. Also states that he feels a bump in his back near the pain is. Patient states that he does not want any pain medication, but wants answers as to why his left side has been continuing to hurt. Denies any fevers, chills, sore throat, cough, dyspnea, chest pain, palpitations, abdominal pain, nausea, vomiting, diarrhea, or headaches. MD Complaint: left sided rib pain Onset/Timin -: week(s) - Related Data Home Medications Medication Instructions Recorded Confirmed Aspirin [Adult Low Dose Aspirin EC] 81 mg PO DAILY 03/26/20 06/11/20 Atorvastatin [Lipitor] 40 mg PO HS 03/26/20 06/11/20 Metoprolol Tartrate [Lopressor] 12.5 mg PO BID 03/26/20 06/11/20 Previous Rx's Medication Instructions Recorded HYDROcodone/APAP 5-325MG [[place] 1 tab PO Q6HR PRN 3 Days #12 tab 06/11/20 5-325] Lidocaine 5% Patch [Lidoderm 5% 1 patch TOPICAL DAILY PRN #30 patch 07/08/22 Patch] predniSONE 50 mg PO DAILY 5 Days #5 tablet 07/08/22 Allergies Allergy/AdvReac Type Severity Reaction Status Date / Time Penicillins Allergy SEIZURE Verified 07/08/22 13:35 Review of Systems ROS Statement: Those systems with pertinent positive or pertinent negative responses have been documented in the HPI. ROS Other: All systems not noted in ROS Statement are negative. Past Medical History Past Medical History: Musculoskeletal Disorder Additional Past Medical History / Comment(s): LUMBAR DDD-NUMBNESS & TINGLING IN LT LEG TO FEET OCCASIONALLY- USES TENS UNIT PRN, HAS HEART BLOCK PER PT AFTER HEART CATH 2 WEEKS AGO History of Any Multi-Drug Resistant Organisms: None Reported Past Surgical History: Heart Catheterization Additional Past Surgical History / Comment(s): PAIN CLINIC PROCEDURES, Past Anesthesia/Blood Transfusion Reactions: No Reported Reaction Past Psychological History: No Psychological Hx Reported Smoking Status: Current every day smoker Past Alcohol Use History: Daily Past Drug Use History: None Reported - Past Family History Mother Family Medical History: Myocardial Infarction (MT) Additional Family Medical History / Comment(s): triple bipass Father Family Medical History: Congestive Heart Failure (CHF), Coronary Artery Disease (CAD) Additional Family Medical History / Comment(s): triple bypass General Exam Limitations: no limitations General appearance: alert, in distress Head exam: Present: atraumatic, normocephalic, normal inspection Respiratory exam: Present: normal lung sounds bilaterally, chest wall tenderness (Left lower rib cage, no overlying erythema or ecchymosis.). Absent: respiratory distress, wheezes, rales, rhonchi, stridor Cardiovascular Exam: Present: regular rate, normal rhythm, normal heart sounds. Absent: systolic murmur, diastolic murmur, rubs, gallop, clicks Neurological exam: Present: alert, oriented X3, CN II-XII intact Psychiatric exam: Present: normal affect, normal mood Skin exam: Present: warm, dry, intact, normal color. Absent: rash Course Vital Signs 07/08/22 07/08/22 13:33 16:14 Temperature 98.5 F 98.3 F Pulse Rate 88 80 Respiratory 18 18 Rate Blood Pressure 128/87 126/84 O2 Sat by Pulse 99 98 Oximetry Medical Decision Making - Medical Decision Making This is a 57-year-old male who presents to the emergency department for left- sided rib pain. Chest x-ray was obtained, on my interpretation there is no evidence of rib fractures or localized consolidations or infiltrates. Given the patient's severity of pain and lack of x-ray findings, will obtain a computed tomography scan of the chest, abdomen, and thoracic spine. Patient declines any pain medication at this time. Given the overlying tenderness and the recent injury, symptoms are not suspicious for a cardiopulmonary process. My interpretation of the computed tomography scan of the thoracic spine identifies no evidence of acute fractures or dislocations. My interpretation of the computed tomography scan of the chest and abdomen does identify what appears to be a rib fracture of rib #10 on the left. There are also multiple incidental findings such as cholelithiasis and nephrolithiasis. Findings discussed with the patient in that his symptoms are likely related to the rib fracture. Treatment choudhary, this will not be treated differently than the rib contusion that he was previously diagnosed with. Discussed that he can expect 6-8 weeks of recovery time. Prescription for 5 day course of prednisone and lidocaine patches provided with dosing instructions reviewed. Advised he avoid taking naproxen when taking the prednisone, and he can take Tylenol with both of these medications. Also suggested [id number] capsaicin cream and trying heat if the ice is no longer effective. He was also advised of the incidental findings of cholelithiasis and nephrolithiasis and given information on what to expect if these begin causing problems for him. Return precautions reviewed in depth, the patient is instructed to return to the emergency department with any new, worsening, or concerning symptoms. Patient verbalized understanding. This case was discussed in detail with the attending ED physician. Presentation, findings, and treatment plan discussed in detail as well. - Radiology Data Radiology results: report reviewed, image reviewed Disposition Clinical Impression: Left rib fracture Disposition: HOME SELF-CARE Instructions (If sedation given, give patient instructions): Rib Fracture (ED) Additional Instructions: Return to the emergency department with any new, worsening, or concerning symptoms. Take the prednisone daily for 5 days. Do not take the naproxen when taking this. You can take the naproxen after finishing the prednisone. You may take Tylenol with both of these medications. You can apply the lidocaine patches daily for additional relief. Try applying heat if you no longer find the ice to be effective. You can also try [id number] capsaicin cream. Follow up with your primary care provider as scheduled, sooner if needed. Prescriptions: Lidocaine 5% Patch [Lidoderm 5% Patch] 1 patch TOPICAL DAILY PRN #30 patch PRN Reason: Pain predniSONE 50 mg PO DAILY 5 Days #5 tablet Is patient prescribed a controlled substance at d/c from ED?: No Referrals: Kem Ortega MD [Primary Care Provider] - 1-2 days
--- NOTE | 2022-07-08 15:21 | CT ---
EXAMINATION TYPE: CT chest abdomen wo con, CT thoracic spine wo con DATE OF EXAM: 07/08/2022 COMPARISON: Prior chest CT February 26, 2016 HISTORY: Persistent left-sided pain after injury. CT DLP: n/a mGycm. Automated Exposure Control for Dose Reduction was Utilized. TECHNIQUE: CT scan of the thorax and abdomen are performed without IV contrast. CT thoracic spine wi thout contrast. FINDINGS: LUNGS: The lungs are grossly clear, there is no concerning parenchymal mass or nodule identified. T here is no pleural effusion or pneumothorax seen. The tracheobronchial tree is patent. MEDIASTINUM: Lack of IV contrast is noted to limit evaluation for mediastinal and especially hilar ad enopathy. There are no definitive greater than 1 cm hilar or mediastinal lymph nodes. No cardiomega ly or pericardial effusion is seen. Coronary artery calcification is present. OTHER: There is acute minimally displaced fracture involving lateral left 10th rib image 66. LIVER/GB: Dependent small gallstones within gallbladder are seen axial image 71. Gallbladder has dist ended margins. No surrounding inflammatory change is seen. PANCREAS: No significant abnormality is seen. SPLEEN: No significant abnormality is seen. ADRENALS: No significant abnormality is seen. KIDNEYS: Tiny nonobstructing bilateral renal calculi. For reference there are approximately 7-10 righ t-sided renal calculi all measuring under 3 mm in size. Similar finding on the left with approximatel y 10-15 left-sided calculi all measuring under 3 mm in size. No hydronephrosis or obstructing uretera l calculi. BOWEL: No significant abnormality is seen. LYMPH NODES: No greater than 1cm abdominal lymph nodes are appreciated. OSSEOUS STRUCTURES: There is spurring and disc space narrowing with sclerosis at left L5-S1 level. Th ere is S-shaped scoliosis seen. OTHER: No significant additional abnormality is seen. Thoracic spine: Thoracic spine show satisfactory alignment without evidence of acute fracture or disl ocation. Vertebral body heights and disc space heights are fairly well-maintained. Mild multilevel an terior and lateral spurring is seen. Spinal canal is grossly preserved. IMPRESSION: 1. No acute fracture or dislocation in the thoracic spine. 2. There is minimally displaced acute fracture through the lateral left 10th rib.
[2022-07-08 16:19] VITALS: BP 126/84; PULSE 80; TEMP 98.3
== END 2022-07-08 16:17 | disposition home or self-care (01) ==
LOC: EC 12:42
DX: S22.32XA Fracture of one rib, left side, initial encounter for closed fracture (principal); F17.200 Nicotine dependence, unspecified, uncomplicated; Z88.0 Allergy status to penicillin; Z79.82 Long term (current) use of aspirin; W18.09XA Striking against other object with subsequent fall, initial encounter
CPT/HCPCS: 71046; 71250; 72128; 74150; 99283